=== PATIENT | female | born 1960 | race Caucasian/White ===

== ENCOUNTER 2018-04-06 14:01 | Inpatient (IN) | payer BC ==
[2018-04-06] MEDS ORDERED: PROPOFOL 20 ML (16:13)
[2018-04-06] MEDS ORDERED: CEFAZOLIN 1 GM INJ ×2 (16:13→19:23)
[2018-04-06] MEDS ORDERED: ROCURONIUM 50 MG INJ ×2 (16:13→17:00)
[2018-04-06] MEDS ORDERED: MIDAZOLAM 1 MG/ML 2 ML INJ (16:14)
[2018-04-06] MEDS ORDERED: ROPIVACAINE 0.5 % 30 ML VIAL (16:17)
[2018-04-06] MEDS ORDERED: ONDANSETRON 4 MG INJ IV (16:30)
[2018-04-06] MEDS ORDERED: FENTAnyl 50 MCG/ML VIAL IV ×3 (16:30)
[2018-04-06] MEDS ORDERED: DIPHENHYDRAMINE 50 MG INJ IV (16:30)
[2018-04-06] MEDS ORDERED: EPHEDrine SULFATE 50 MG/5 ML SYG IV (16:30)
[2018-04-06] MEDS ORDERED: OXYCODONE/ACETAMINOPHEN (5/325) TAB PO ×2 (16:30)
[2018-04-06] MEDS ORDERED: HYDROmorphONE 1 MG/5 ML IV SYRINGE IV (16:30)
[2018-04-06] MEDS ORDERED: LABETALOL HCL 20MG INJ IV (16:30)
[2018-04-06] MEDS ORDERED: METOCLOPRAMIDE 10 MG INJ IV (16:30)
[2018-04-06] MEDS ORDERED: hydrALAzine 20 MG INJ IV (16:30)
[2018-04-06] MEDS ORDERED: DEXAMETHASONE 4 MG/ML 1 ML INJ (17:00)
[2018-04-06] MEDS ORDERED: ONDANSETRON 4 MG INJ (17:00)
[2018-04-06] MEDS ORDERED: METOCLOPRAMIDE 10 MG INJ (17:00)
[2018-04-06] MEDS ORDERED: ACETAMINOPHEN 1000MG/100ML IV 100 ML (17:01)
[2018-04-06] MEDS ORDERED: EPHEDrine SULFATE 50 MG/5 ML SYG (18:48)
[2018-04-06] MEDS ORDERED: HYDROmorphONE 2 MG/ML SYG (19:16)
[2018-04-06] MEDS: SOD CHLORIDE 0.9% 1,000 ML IV (19:56)
[2018-04-06] MEDS: MEPERIDINE 25 MG INJ IV (20:12)
[2018-04-06] MEDS: ONDANSETRON 4 MG INJ IV (20:45)
[2018-04-06] MEDS: HYDROmorphONE 1 MG/5 ML IV SYRINGE IV ×2 (20:47→21:18)
[2018-04-06] MEDS: morphine 2 MG INJ IV (21:36)
[2018-04-06] MEDS: INSULIN GLARGINE [LANTus] (100 UNITS/ML) SYG SC (23:45)
[2018-04-07] MEDS: morphine 2 MG INJ IV ×9 (02:30→23:08)
[2018-04-07] MEDS: SOD CHLORIDE 0.9% 1,000 ML IV ×2 (02:30→12:27)
[2018-04-07] MEDS: ACCU-CHEK XX (02:40)
[2018-04-07 05:26] LABS: ADD MAN DIFF? NO
[2018-04-07 05:35] LABS: BASOPHILS % 0.1 % (0.0-2.0); HEMATOCRIT 29.2 % (37.0-47.0); HEMOGLOBIN 9.3 g/dl (12.0-16.0); LYMPHOCYTES # 0.8 10^3/ul (0.8-2.9); MEAN CORPUSCULAR HEMOGLOBIN 28.4 pg (29.0-33.0); MEAN CORPUSCULAR HGB CONC 31.8 g/dl (32.0-37.0); MEAN CORPUSCULAR VOLUME 89.3 fl (82.0-101.0); MEAN PLATELET VOLUME 12.2 fl (7.4-10.4); MONOCYTE # 0.6 10^3/ul (0.3-0.9); MONOCYTES % 6.7 % (0.0-11.0); NEUTROPHIL # 8.2 10^3/ul (1.6-7.5); NEUTROPHILS % 84.8 % (39.0-77.0); PLATELET COUNT 215 10^3/UL (140-415); RED BLOOD COUNT 3.27 10^6/ul (4.20-5.40); RED CELL DISTRIBUTION WIDTH 13.3 % (11.5-14.5)
[2018-04-07 05:35] LABS: WHITE BLOOD COUNT 9.6 10^3/ul (4.8-10.8)
[2018-04-07 06:04] LABS: ALANINE AMINOTRANSFERASE 96 IU/L (13-69); ALBUMIN 3.8 g/dl (3.3-4.9); ALBUMIN/GLOBULIN RATIO 1.58; ALKALINE PHOSPHATASE 56 IU/L (42-121); ANION GAP 13 (8-16); ASPARTATE AMINO TRANSFERASE 112 IU/L (15-46); BILIRUBIN,INDIRECT 0.2 mg/dl (0-1.1); BILIRUBIN,TOTAL 0.2 mg/dl (0.2-1.3); BLOOD UREA NITROGEN 43 mg/dl (7-20); CALCIUM 8.5 mg/dl (8.4-10.2); CARBON DIOXIDE 23 mmol/L (21-31); CHLORIDE 110 mmol/L (97-110); CREATININE 1.85 mg/dl (0.44-1.00); GLUCOSE 232 mg/dl (70-220); POTASSIUM 4.8 mmol/L (3.5-5.1); SODIUM 141 mmol/L (135-144); TOTAL PROTEIN 6.2 g/dl (6.1-8.1)
[2018-04-07] MEDS: FUROSEMIDE 20 MG TAB PO (06:35)
[2018-04-07] MEDS: LEVOTHYROXINE 112 MCG TAB PO (06:35)
[2018-04-07] MEDS: HEPARIN 5,000 UNIT/0.5 ML VIAL SC ×2 (06:38→18:51)
[2018-04-07] MEDS: INSULIN ASPART [NOVOLOG] 3 ML PEN SC ×7 (08:34→20:46)
[2018-04-07] MEDS: LISINOPRIL 20 MG TAB PO (08:37)
[2018-04-07] MEDS: CEFAZOLIN 1 GM/50 ML (PMX) 50 ML IVPB (08:37)
[2018-04-07] MEDS: CLOPIDOGREL 75 MG TAB PO (08:37)
[2018-04-07] MEDS: ZINC SULFATE 220 MG CAP PO (08:37)
[2018-04-07] MEDS: FENOFIBRATE 145 MG TAB PO (08:38)
[2018-04-07] MEDS: NEBIVOLOL 5 MG TAB PO (08:38)
[2018-04-07] MEDS: AMLODIPINE 10 MG TAB PO (08:39)
[2018-04-07] MEDS: GABAPENTIN 100 MG CAP PO ×3 (08:39→20:38)
[2018-04-07] MEDS: LIDOCAINE 5% PATCH TD (08:41)
[2018-04-07] MEDS: VITAMIN B COMPLEX/VIT C CAP PO (08:57)
[2018-04-07 09:02] LABS: MAGNESIUM 1.8 mg/dl (1.7-2.5)
[2018-04-07 09:02] LABS: PHOSPHORUS 4.6 mg/dl (2.5-4.9)
[2018-04-07] MEDS ORDERED: DIPHENHYDRAMINE 25 MG CAP (12:43)
[2018-04-07] MEDS ORDERED: INSULIN GLARGINE [LANTus] (100 UNITS/ML) SYG SC (20:00)
[2018-04-07] MEDS: ATORVASTATIN 40 MG TAB PO (20:38)
[2018-04-07] MEDS: INSULIN GLARGINE [LANTus] (100 UNITS/ML) SYG SC (20:46)
[2018-04-07] MEDS: LIRAGLUTIDE SC (21:00)
[2018-04-07] MEDS: ZOLPIDEM 5 MG TAB PO (23:37)
[2018-04-08] MEDS: SOD CHLORIDE 0.9% 1,000 ML IV ×3 (01:45→23:18)
[2018-04-08] MEDS: ACCU-CHEK XX (02:00)
[2018-04-08] MEDS: LEVOTHYROXINE 112 MCG TAB PO (06:18)
[2018-04-08] MEDS: FUROSEMIDE 20 MG TAB PO (06:19)
[2018-04-08] MEDS: HEPARIN 5,000 UNIT/0.5 ML VIAL SC ×2 (06:24→19:38)
[2018-04-08 07:05] LABS: ADD MAN DIFF? NO
[2018-04-08 07:11] LABS: BASOPHILS % 0.3 % (0.0-2.0); EOSINOPHILS # 0.1 10^3/ul (0.0-0.5); EOSINOPHILS % 1.9 % (0.0-7.0); HEMATOCRIT 24.7 % (37.0-47.0); LYMPHOCYTES # 1.6 10^3/ul (0.8-2.9); LYMPHOCYTES % 23.4 % (15.0-51.0); MEAN CORPUSCULAR HEMOGLOBIN 28.5 pg (29.0-33.0); MEAN CORPUSCULAR HGB CONC 32.4 g/dl (32.0-37.0); MEAN CORPUSCULAR VOLUME 87.9 fl (82.0-101.0); MEAN PLATELET VOLUME 12.6 fl (7.4-10.4); MONOCYTE # 0.8 10^3/ul (0.3-0.9); MONOCYTES % 10.9 % (0.0-11.0); NEUTROPHIL # 4.4 10^3/ul (1.6-7.5); NEUTROPHILS % 63.2 % (39.0-77.0); PLATELET COUNT 178 10^3/UL (140-415); RED BLOOD COUNT 2.81 10^6/ul (4.20-5.40); RED CELL DISTRIBUTION WIDTH 13.2 % (11.5-14.5)
[2018-04-08 07:58] LABS: ANION GAP 11 (8-16); BLOOD UREA NITROGEN 31 mg/dl (7-20); CALCIUM 8.6 mg/dl (8.4-10.2); CARBON DIOXIDE 24 mmol/L (21-31); CHLORIDE 106 mmol/L (97-110); CREATININE 1.65 mg/dl (0.44-1.00); GLUCOSE 164 mg/dl (70-220); POTASSIUM 3.8 mmol/L (3.5-5.1); SODIUM 137 mmol/L (135-144)
[2018-04-08] MEDS: VITAMIN B COMPLEX/VIT C CAP PO (08:34)
[2018-04-08] MEDS: GABAPENTIN 100 MG CAP PO ×3 (08:35→20:19)
[2018-04-08] MEDS: CLOPIDOGREL 75 MG TAB PO (08:35)
[2018-04-08] MEDS: LISINOPRIL 20 MG TAB PO (08:35)
[2018-04-08] MEDS: ZINC SULFATE 220 MG CAP PO (08:35)
[2018-04-08] MEDS: AMLODIPINE 10 MG TAB PO (08:35)
[2018-04-08] MEDS: NEBIVOLOL 5 MG TAB PO (08:36)
[2018-04-08] MEDS: FENOFIBRATE 145 MG TAB PO (08:44)
[2018-04-08] MEDS: INSULIN ASPART [NOVOLOG] 3 ML PEN SC ×7 (08:45→20:21)
[2018-04-08] MEDS: LIRAGLUTIDE SC (08:46)
[2018-04-08] MEDS: LIDOCAINE 5% PATCH TD (08:55)
[2018-04-08] MEDS: morphine 4 MG/ML VIAL IV (12:05)
[2018-04-08] MEDS ORDERED: ACETAMINOPHEN 325 MG TAB PO (15:30)
[2018-04-08 19:05] LABS: ADD UMIC NO; UR ASCORBIC ACID NEGATIVE (NEGATIVE); UR BILIRUBIN (Dip) NEGATIVE (NEGATIVE); UR BLOOD (Dip) NEGATIVE (NEGATIVE); UR CLARITY CLEAR (CLEAR); UR COLOR YELLOW (YELLOW); UR GLUCOSE (Dip) 1+ mg/dL (NEGATIVE); UR KETONES (Dip) NEGATIVE (NEGATIVE); UR LEUKOCYTE ESTERASE (Dip) NEGATIVE Leu/ul (NEGATIVE); UR NITRITE (Dip) NEGATIVE (NEGATIVE); UR TOTAL PROTEIN (Dip) NEGATIVE (NEGATIVE); UR UROBILINOGEN (Dip) NEGATIVE (NEGATIVE)
[2018-04-08] MEDS: ATORVASTATIN 40 MG TAB PO (20:19)
[2018-04-08] MEDS: INSULIN GLARGINE [LANTus] (100 UNITS/ML) SYG SC (20:21)
[2018-04-09] MEDS: morphine 4 MG/ML VIAL IV (00:16)
[2018-04-09] MEDS: ACCU-CHEK XX (02:00)
[2018-04-09] MEDS: SOD CHLORIDE 0.9% 1,000 ML IV ×3 (03:48→23:33)
[2018-04-09 05:11] LABS: ADD MAN DIFF? NO
[2018-04-09 05:19] LABS: WHITE BLOOD COUNT 6.4 10^3/ul (4.8-10.8)
[2018-04-09 05:19] LABS: BASOPHILS % 0.3 % (0.0-2.0); EOSINOPHILS # 0.2 10^3/ul (0.0-0.5); EOSINOPHILS % 2.8 % (0.0-7.0); HEMATOCRIT 24.8 % (37.0-47.0); LYMPHOCYTES # 1.7 10^3/ul (0.8-2.9); LYMPHOCYTES % 26.8 % (15.0-51.0); MEAN CORPUSCULAR HEMOGLOBIN 28.4 pg (29.0-33.0); MEAN CORPUSCULAR HGB CONC 32.3 g/dl (32.0-37.0); MEAN CORPUSCULAR VOLUME 87.9 fl (82.0-101.0); MONOCYTE # 0.6 10^3/ul (0.3-0.9); MONOCYTES % 9.7 % (0.0-11.0); NEUTROPHIL # 3.9 10^3/ul (1.6-7.5); NEUTROPHILS % 60.1 % (39.0-77.0); PLATELET COUNT 180 10^3/UL (140-415); RED BLOOD COUNT 2.82 10^6/ul (4.20-5.40); RED CELL DISTRIBUTION WIDTH 12.8 % (11.5-14.5)
[2018-04-09] MEDS: FUROSEMIDE 20 MG TAB PO (05:37)
[2018-04-09] MEDS: LEVOTHYROXINE 112 MCG TAB PO (05:37)
[2018-04-09 05:39] LABS: ANION GAP 9 (8-16); BLOOD UREA NITROGEN 29 mg/dl (7-20); CARBON DIOXIDE 27 mmol/L (21-31); CHLORIDE 108 mmol/L (97-110); CREATININE 1.53 mg/dl (0.44-1.00); GLUCOSE 139 mg/dl (70-220); POTASSIUM 3.8 mmol/L (3.5-5.1); SODIUM 140 mmol/L (135-144)
[2018-04-09] MEDS: HEPARIN 5,000 UNIT/0.5 ML VIAL SC ×2 (05:39→19:22)
[2018-04-09] MEDS: LISINOPRIL 20 MG TAB PO (08:35)
[2018-04-09] MEDS: CLOPIDOGREL 75 MG TAB PO (08:35)
[2018-04-09] MEDS: ZINC SULFATE 220 MG CAP PO (08:35)
[2018-04-09] MEDS: GABAPENTIN 100 MG CAP PO ×3 (08:35→20:21)
[2018-04-09] MEDS: VITAMIN B COMPLEX/VIT C CAP PO (08:35)
[2018-04-09] MEDS: FENOFIBRATE 145 MG TAB PO (08:35)
[2018-04-09] MEDS: AMLODIPINE 10 MG TAB PO (08:36)
[2018-04-09] MEDS: NEBIVOLOL 5 MG TAB PO (08:36)
[2018-04-09] MEDS: INSULIN ASPART [NOVOLOG] 3 ML PEN SC ×7 (08:38→20:25)
[2018-04-09] MEDS: LIDOCAINE 5% PATCH TD ×2 (09:00→10:46)
[2018-04-09] MEDS: LIRAGLUTIDE SC ×2 (09:00→10:47)
[2018-04-09] MEDS ORDERED: VANCOMYCIN IV PER PHARMACY XX (17:30)
[2018-04-09] MEDS: ATORVASTATIN 40 MG TAB PO (20:21)
[2018-04-09] MEDS: INSULIN GLARGINE [LANTus] (100 UNITS/ML) SYG SC (20:26)
[2018-04-10] MEDS: VANCOMYCIN 2 GM in SOD CHLORIDE 0.9% 500 ML IVPB (01:26)
[2018-04-10] MEDS: ACCU-CHEK XX (01:43)
[2018-04-10] MEDS: morphine 4 MG/ML VIAL IV (03:29)
[2018-04-10] MEDS: DIPHENHYDRAMINE 25 MG CAP PO (03:32)
[2018-04-10] MEDS: LEVOTHYROXINE 112 MCG TAB PO (06:26)
[2018-04-10] MEDS: FUROSEMIDE 20 MG TAB PO (06:29)
[2018-04-10] MEDS: HEPARIN 5,000 UNIT/0.5 ML VIAL SC ×2 (06:32→20:28)
[2018-04-10] MEDS: INSULIN ASPART [NOVOLOG] 3 ML PEN SC ×7 (07:50→20:30)
[2018-04-10] MEDS: CLOPIDOGREL 75 MG TAB PO (08:32)
[2018-04-10] MEDS: VITAMIN B COMPLEX/VIT C CAP PO (08:32)
[2018-04-10] MEDS: AMLODIPINE 10 MG TAB PO (08:33)
[2018-04-10] MEDS: LISINOPRIL 20 MG TAB PO (08:34)
[2018-04-10] MEDS: FENOFIBRATE 145 MG TAB PO (08:34)
[2018-04-10] MEDS: ZINC SULFATE 220 MG CAP PO (08:35)
[2018-04-10] MEDS: GABAPENTIN 100 MG CAP PO ×3 (08:36→20:26)
[2018-04-10] MEDS: LIDOCAINE 5% PATCH TD (08:40)
[2018-04-10] MEDS ORDERED: HYDROCODONE/APAP (5/325) TAB NGT (09:00)
[2018-04-10] MEDS: LIRAGLUTIDE SC (09:56)
[2018-04-10] MEDS: NEBIVOLOL 5 MG TAB PO (09:56)
[2018-04-10] MEDS: CIPROFLOXACIN 250 MG TAB PO (18:05)
[2018-04-10] MEDS: ATORVASTATIN 40 MG TAB PO (20:27)
[2018-04-10] MEDS: INSULIN GLARGINE [LANTus] (100 UNITS/ML) SYG SC (20:29)
[2018-04-10] MEDS ORDERED: VANCOMYCIN 1.5 GM in SOD CHLORIDE 0.9% 250 ML IVPB (23:00)
[2018-04-11] MEDS: ACCU-CHEK XX (01:38)
[2018-04-11] MEDS: CIPROFLOXACIN 250 MG TAB PO ×2 (06:44→17:51)
[2018-04-11] MEDS: FUROSEMIDE 20 MG TAB PO (06:44)
[2018-04-11] MEDS: LEVOTHYROXINE 112 MCG TAB PO (06:44)
[2018-04-11] MEDS: HEPARIN 5,000 UNIT/0.5 ML VIAL SC ×2 (06:46→18:45)
[2018-04-11] MEDS: NEBIVOLOL 5 MG TAB PO (08:56)
[2018-04-11] MEDS: FENOFIBRATE 145 MG TAB PO (08:57)
[2018-04-11] MEDS: GABAPENTIN 100 MG CAP PO ×3 (08:57→20:31)
[2018-04-11] MEDS: VITAMIN B COMPLEX/VIT C CAP PO (08:57)
[2018-04-11] MEDS: LISINOPRIL 20 MG TAB PO (08:58)
[2018-04-11] MEDS: CLOPIDOGREL 75 MG TAB PO (08:58)
[2018-04-11] MEDS: AMLODIPINE 10 MG TAB PO (08:59)
[2018-04-11] MEDS: ZINC SULFATE 220 MG CAP PO (08:59)
[2018-04-11] MEDS: LIRAGLUTIDE SC (09:00)
[2018-04-11] MEDS: INSULIN ASPART [NOVOLOG] 3 ML PEN SC ×7 (09:01→20:38)
[2018-04-11] MEDS: LIDOCAINE 5% PATCH TD (09:03)
[2018-04-11] MEDS ORDERED: INSULIN ASPART [NOVOLOG] 3 ML PEN SC (11:40)
[2018-04-11] MEDS: ATORVASTATIN 40 MG TAB PO (20:31)
[2018-04-11] MEDS: INSULIN GLARGINE [LANTus] (100 UNITS/ML) SYG SC (20:37)
[2018-04-12] MEDS: ACCU-CHEK XX (02:00)
[2018-04-12] MEDS: CIPROFLOXACIN 250 MG TAB PO ×2 (06:14→18:02)
[2018-04-12] MEDS: LEVOTHYROXINE 112 MCG TAB PO (06:14)
[2018-04-12] MEDS: FUROSEMIDE 20 MG TAB PO (06:15)
[2018-04-12] MEDS: HEPARIN 5,000 UNIT/0.5 ML VIAL SC ×2 (06:18→20:18)
[2018-04-12] MEDS: CLOPIDOGREL 75 MG TAB PO (08:46)
[2018-04-12] MEDS: VITAMIN B COMPLEX/VIT C CAP PO (08:46)
[2018-04-12] MEDS: ZINC SULFATE 220 MG CAP PO (08:46)
[2018-04-12] MEDS: FENOFIBRATE 145 MG TAB PO (08:46)
[2018-04-12] MEDS: GABAPENTIN 100 MG CAP PO ×3 (08:46→20:09)
[2018-04-12] MEDS: NEBIVOLOL 5 MG TAB PO (08:49)
[2018-04-12] MEDS: LISINOPRIL 20 MG TAB PO (08:50)
[2018-04-12] MEDS: AMLODIPINE 10 MG TAB PO (08:50)
[2018-04-12] MEDS: LIRAGLUTIDE SC (08:59)
[2018-04-12] MEDS: INSULIN ASPART [NOVOLOG] 3 ML PEN SC ×7 (09:04→21:00)
[2018-04-12] MEDS: LIDOCAINE 5% PATCH TD (12:48)
[2018-04-12] MEDS: INSULIN GLARGINE [LANTus] (100 UNITS/ML) SYG SC ×2 (20:00→22:29)
[2018-04-12] MEDS: ATORVASTATIN 40 MG TAB PO (20:09)
[2018-04-13] MEDS: ACCU-CHEK XX (02:00)
[2018-04-13] MEDS: CIPROFLOXACIN 250 MG TAB PO (06:07)
[2018-04-13] MEDS: FUROSEMIDE 20 MG TAB PO (06:07)
[2018-04-13] MEDS: LEVOTHYROXINE 112 MCG TAB PO (06:07)
[2018-04-13] MEDS: HEPARIN 5,000 UNIT/0.5 ML VIAL SC (06:11)
[2018-04-13] MEDS: INSULIN ASPART [NOVOLOG] 3 ML PEN SC ×4 (07:50→13:09)
[2018-04-13] MEDS: LIRAGLUTIDE SC (09:05)
[2018-04-13] MEDS: CLOPIDOGREL 75 MG TAB PO (09:08)
[2018-04-13] MEDS: GABAPENTIN 100 MG CAP PO ×2 (09:08→13:19)
[2018-04-13] MEDS: FENOFIBRATE 145 MG TAB PO (09:08)
[2018-04-13] MEDS: ZINC SULFATE 220 MG CAP PO (09:09)
[2018-04-13] MEDS: LISINOPRIL 20 MG TAB PO (09:10)
[2018-04-13] MEDS: AMLODIPINE 10 MG TAB PO (09:10)
[2018-04-13] MEDS: NEBIVOLOL 5 MG TAB PO (09:13)
[2018-04-13] MEDS: VITAMIN B COMPLEX/VIT C CAP PO (09:20)
[2018-04-13] MEDS: LIDOCAINE 5% PATCH TD (09:34)
== END 2018-04-13 13:56 | disposition home health service (06) | DRG 41 ==
LOC: SDS 14:01 → REC 20:05 → MS1 21:30
PROVIDERS: Podiatrist Foot & Ankle Surgery
PROC: 0SGF05Z Fusion of Right Ankle Joint with External Fixation Device, Open Approach (ICD-10-PCS; principal; 2018-04-06 16:00)
PROC: 0JXQ0ZC Transfer Right Foot Subcutaneous Tissue and Fascia with Skin, Subcutaneous Tissue and Fascia, Open Approach (ICD-10-PCS; 2018-04-06 16:00)
PROC: 0JBQ0ZZ Excision of Right Foot Subcutaneous Tissue and Fascia, Open Approach (ICD-10-PCS; 2018-04-06 16:00)
PROC: 0QBJ0ZZ Excision of Right Fibula, Open Approach (ICD-10-PCS; 2018-04-06 16:00)
PROC: 0SU Lower Joints, Supplement (ICD-10-PCS; 2018-04-06 16:00)
DX: E11.610 Type 2 diabetes mellitus with diabetic neuropathic arthropathy (principal); N39.0 Urinary tract infection, site not specified; L97.319 Non-pressure chronic ulcer of right ankle with unspecified severity; M84.671 Pathological fracture in other disease, right ankle; E11.622 Type 2 diabetes mellitus with other skin ulcer; E11.42 Type 2 diabetes mellitus with diabetic polyneuropathy; E11.22 Type 2 diabetes mellitus with diabetic chronic kidney disease; E11.65 Type 2 diabetes mellitus with hyperglycemia; E78.5 Hyperlipidemia, unspecified; E66.9 Obesity, unspecified; E03.9 Hypothyroidism, unspecified; I10 Essential (primary) hypertension; M21.171 Varus deformity, not elsewhere classified, right ankle; M25.371 Other instability, right ankle; N18.3 Chronic kidney disease, stage 3 (moderate); B95.2 Enterococcus as the cause of diseases classified elsewhere; Z68.35 Body mass index [BMI] 35.0-35.9, adult; Z86.73 Personal history of transient ischemic attack (TIA), and cerebral infarction without residual deficits; Z79.02 Long term (current) use of antithrombotics/antiplatelets; Z79.4 Long term (current) use of insulin
CPT/HCPCS: 73600; 73610-RT; 73630; 80048; 80053; 81003; 82962; 83735; 84100; 85025; 87070; 87075; 87086; 87102; 87116; 97110; 97116; 97161; 97530; 97542

== ENCOUNTER 2018-04-20 09:30 | Inpatient (IN) | payer BC ==
[2018-04-20] MEDS: SODIUM CHLORIDE 0.9% 1L BAG IV* (10:16)
[2018-04-20 10:49] LABS: ADD MAN DIFF? NO
[2018-04-20 11:06] LABS: BASOPHIL # 0.1 10^3/ul (0.0-0.1); BASOPHILS % 0.6 % (0.0-2.0); EOSINOPHILS # 0.4 10^3/ul (0.0-0.5); EOSINOPHILS % 4.9 % (0.0-7.0); HEMOGLOBIN 10.1 g/dl (12.0-16.0); LYMPHOCYTES # 1.8 10^3/ul (0.8-2.9); LYMPHOCYTES % 22.4 % (15.0-51.0); MEAN CORPUSCULAR HEMOGLOBIN 28.2 pg (29.0-33.0); MEAN CORPUSCULAR HGB CONC 31.6 g/dl (32.0-37.0); MEAN CORPUSCULAR VOLUME 89.4 fl (82.0-101.0); MEAN PLATELET VOLUME 11.2 fl (7.4-10.4); MONOCYTE # 0.5 10^3/ul (0.3-0.9); MONOCYTES % 6.7 % (0.0-11.0); NEUTROPHIL # 5.2 10^3/ul (1.6-7.5); NEUTROPHILS % 64.7 % (39.0-77.0); PLATELET COUNT 433 10^3/UL (140-415); RED BLOOD COUNT 3.58 10^6/ul (4.20-5.40); RED CELL DISTRIBUTION WIDTH 13.2 % (11.5-14.5)
[2018-04-20 11:11] LABS: INR 0.93; PROTIME 12.6 Sec (11.9-14.9)
[2018-04-20 11:12] LABS: ALANINE AMINOTRANSFERASE 27 IU/L (13-69); ALBUMIN 4.5 g/dl (3.3-4.9); ALKALINE PHOSPHATASE 69 IU/L (42-121); ANION GAP 13 (8-16); ASPARTATE AMINO TRANSFERASE 32 IU/L (15-46); BILIRUBIN,INDIRECT 0.3 mg/dl (0-1.1); BILIRUBIN,TOTAL 0.3 mg/dl (0.2-1.3); BLOOD UREA NITROGEN 50 mg/dl (7-20); CALCIUM 10.1 mg/dl (8.4-10.2); CARBON DIOXIDE 25 mmol/L (21-31); CHLORIDE 109 mmol/L (97-110); CREATININE 1.97 mg/dl (0.44-1.00); GLUCOSE 134 mg/dl (70-220); PARTIAL THROMBOPLASTIN TIME 33.3 Sec (23.0-35.0); POTASSIUM 4.4 mmol/L (3.5-5.1); SODIUM 143 mmol/L (135-144); TOTAL PROTEIN 7.7 g/dl (6.1-8.1)
[2018-04-20] MEDS: PIPER-TAZO 3.375 GM IV (PMX) 100 ML IVPB (12:50)
[2018-04-20] MEDS ORDERED: ONDANSETRON 4 MG INJ IV ×2 (13:00→18:00)
[2018-04-20] MEDS ORDERED: ACETAMINOPHEN 325 MG TAB PO ×2 (13:00→18:00)
[2018-04-20] MEDS: CLINDAMYCIN 900 MG/D5W (PMX) 50 ML IVPB ×2 (13:28→23:57)
[2018-04-20] MEDS: VANCOMYCIN 1 GM (PMX) 250 ML IVPB (15:05)
[2018-04-20] MEDS ORDERED: PIPER-TAZO 3.375 GM IV (PMX) 100 ML IVPB (18:00)
[2018-04-20] MEDS ORDERED: NACL 0.9% 3 ML SYG IV (18:00)
[2018-04-20] MEDS ORDERED: DOCUSATE SODIUM 100 MG CAP PO (18:00)
[2018-04-20] MEDS ORDERED: VANCOMYCIN IV PER PHARMACY XX (18:00)
[2018-04-20] MEDS ORDERED: HYDROCODONE/APAP (5/325) TAB PO (18:00)
[2018-04-20] MEDS ORDERED: BISACODYL (EC) 5 MG TAB PO (18:00)
[2018-04-20] MEDS ORDERED: HYDROmorphONE 0.5 MG/0.5 ML SYG IV (18:00)
[2018-04-20] MEDS: INSULIN ASPART [NOVOLOG] 3 ML PEN SC ×3 (18:00→21:00)
[2018-04-20] MEDS: SOD CHLORIDE 0.9% 1,000 ML IV (19:00)
[2018-04-20] MEDS ORDERED: GLUCOSE GEL 15 GRAM TUBE BUCCAL (19:30)
[2018-04-20] MEDS ORDERED: GLUCAGON 1 MG INJ IM (19:30)
[2018-04-20] MEDS ORDERED: DEXTROSE 50% 50 ML SYRINGE IV ×2 (19:30)
[2018-04-20] MEDS ORDERED: GLUCOSE GEL 15 GRAM TUBE PO (19:30)
[2018-04-20] MEDS: PIPER-TAZO 2.25 GM (PMX) 50 ML IVPB (20:25)
[2018-04-20] MEDS: GABAPENTIN 100 MG CAP PO (20:26)
[2018-04-20] MEDS: ATORVASTATIN 40 MG TAB PO (20:26)
[2018-04-20] MEDS: VANCOMYCIN 1 GM 250 ML IVPB (21:13)
[2018-04-20] MEDS ORDERED: CLINDAMYCIN 900 MG INJ IV (22:00)
[2018-04-20] MEDS: INSULIN GLARGINE [LANTus] (100 UNITS/ML) SYG SC (22:27)
[2018-04-21] MEDS: ZOLPIDEM 5 MG TAB PO (00:07)
[2018-04-21] MEDS: PIPER-TAZO 2.25 GM (PMX) 50 ML IVPB ×4 (00:39→17:53)
[2018-04-21] MEDS: ACCU-CHEK XX ×2 (01:18→21:31)
[2018-04-21] MEDS: CLINDAMYCIN 900 MG/D5W (PMX) 50 ML IVPB ×3 (05:33→22:09)
[2018-04-21 06:37] LABS: ADD MAN DIFF? NO
[2018-04-21 06:43] LABS: WHITE BLOOD COUNT 5.1 10^3/ul (4.8-10.8)
[2018-04-21 06:43] LABS: BASOPHILS % 0.6 % (0.0-2.0); EOSINOPHILS # 0.3 10^3/ul (0.0-0.5); EOSINOPHILS % 6.1 % (0.0-7.0); HEMOGLOBIN 8.5 g/dl (12.0-16.0); LYMPHOCYTES # 1.1 10^3/ul (0.8-2.9); LYMPHOCYTES % 21.3 % (15.0-51.0); MEAN CORPUSCULAR HEMOGLOBIN 28.1 pg (29.0-33.0); MEAN CORPUSCULAR HGB CONC 31.5 g/dl (32.0-37.0); MEAN CORPUSCULAR VOLUME 89.1 fl (82.0-101.0); MEAN PLATELET VOLUME 11.2 fl (7.4-10.4); MONOCYTE # 0.5 10^3/ul (0.3-0.9); MONOCYTES % 9.6 % (0.0-11.0); NEUTROPHIL # 3.2 10^3/ul (1.6-7.5); PLATELET COUNT 354 10^3/UL (140-415); RED BLOOD COUNT 3.03 10^6/ul (4.20-5.40); RED CELL DISTRIBUTION WIDTH 13.2 % (11.5-14.5)
[2018-04-21 06:55] LABS: HEMOGLOBIN A1C 6.7 % (0-5.9)
[2018-04-21 07:22] LABS: ALANINE AMINOTRANSFERASE 34 IU/L (13-69); ALBUMIN 3.1 g/dl (3.3-4.9); ALBUMIN/GLOBULIN RATIO 1.06; ALKALINE PHOSPHATASE 46 IU/L (42-121); ANION GAP 11 (8-16); ASPARTATE AMINO TRANSFERASE 31 IU/L (15-46); BILIRUBIN,INDIRECT 0.4 mg/dl (0-1.1); BILIRUBIN,TOTAL 0.4 mg/dl (0.2-1.3); BLOOD UREA NITROGEN 35 mg/dl (7-20); CALCIUM 9.3 mg/dl (8.4-10.2); CARBON DIOXIDE 26 mmol/L (21-31); CHLORIDE 111 mmol/L (97-110); CREATININE 1.94 mg/dl (0.44-1.00); GLUCOSE 80 mg/dl (70-220); SODIUM 144 mmol/L (135-144)
[2018-04-21] MEDS: INSULIN ASPART [NOVOLOG] 3 ML PEN SC ×7 (08:00→21:00)
[2018-04-21] MEDS: LEVOTHYROXINE 112 MCG TAB PO (08:37)
[2018-04-21] MEDS: VITAMIN B COMPLEX/VIT C CAP PO (08:37)
[2018-04-21] MEDS: FUROSEMIDE 20 MG TAB PO (08:37)
[2018-04-21] MEDS: CLOPIDOGREL 75 MG TAB PO (08:38)
[2018-04-21] MEDS: GABAPENTIN 100 MG CAP PO ×3 (08:38→21:08)
[2018-04-21] MEDS: LISINOPRIL 20 MG TAB PO ×2 (08:38→21:09)
[2018-04-21] MEDS: AMLODIPINE 10 MG TAB PO (08:38)
[2018-04-21] MEDS: FENOFIBRATE 145 MG TAB PO (08:42)
[2018-04-21] MEDS: SOD CHLORIDE 0.9% 1,000 ML IV (13:51)
[2018-04-21] MEDS: SODIUM HYPOCHLORITE (1/40) 1 APPLIC BTL IRR (13:57)
[2018-04-21] MEDS: VANCOMYCIN 1 GM 250 ML IVPB (14:59)
[2018-04-21] MEDS: ATORVASTATIN 40 MG TAB PO (21:08)
[2018-04-21] MEDS: INSULIN GLARGINE [LANTus] (100 UNITS/ML) SYG SC (21:16)
[2018-04-22] MEDS: PIPER-TAZO 2.25 GM (PMX) 50 ML IVPB ×5 (00:43→23:08)
[2018-04-22] MEDS: LOPERAMIDE 2 MG CAP PO ×2 (00:45→21:51)
[2018-04-22] MEDS: HYDROCODONE/APAP (5/325) TAB PO (00:45)
[2018-04-22] MEDS: SOD CHLORIDE 0.9% 1,000 ML IV ×2 (03:56→09:51)
[2018-04-22] MEDS: CLINDAMYCIN 900 MG/D5W (PMX) 50 ML IVPB ×3 (06:52→21:49)
[2018-04-22] MEDS: LEVOTHYROXINE 112 MCG TAB PO (07:55)
[2018-04-22] MEDS: INSULIN ASPART [NOVOLOG] 3 ML PEN SC ×7 (08:00→21:00)
[2018-04-22] MEDS: VITAMIN B COMPLEX/VIT C CAP PO (08:34)
[2018-04-22] MEDS: FENOFIBRATE 145 MG TAB PO (08:34)
[2018-04-22] MEDS: CLOPIDOGREL 75 MG TAB PO (08:34)
[2018-04-22] MEDS: GABAPENTIN 100 MG CAP PO ×3 (08:34→21:50)
[2018-04-22] MEDS: LISINOPRIL 20 MG TAB PO ×2 (08:35→21:50)
[2018-04-22] MEDS: AMLODIPINE 5 MG TAB PO ×2 (08:35→21:50)
[2018-04-22] MEDS: FUROSEMIDE 20 MG TAB PO (08:36)
[2018-04-22] MEDS: SODIUM HYPOCHLORITE (1/40) 1 APPLIC BTL IRR (09:00)
[2018-04-22] MEDS: VANCOMYCIN 1 GM 250 ML IVPB (15:26)
[2018-04-22] MEDS: INSULIN GLARGINE [LANTus] (100 UNITS/ML) SYG SC ×2 (20:00→23:18)
[2018-04-22] MEDS: ATORVASTATIN 40 MG TAB PO (21:50)
[2018-04-23] MEDS: ACCU-CHEK XX (01:10)
[2018-04-23] MEDS: SOD CHLORIDE 0.9% 1,000 ML IV (05:09)
[2018-04-23] MEDS: PIPER-TAZO 2.25 GM (PMX) 50 ML IVPB ×3 (05:09→18:26)
[2018-04-23] MEDS: CLINDAMYCIN 900 MG/D5W (PMX) 50 ML IVPB (05:52)
[2018-04-23] MEDS: LEVOTHYROXINE 112 MCG TAB PO (06:00)
[2018-04-23] MEDS: INSULIN ASPART [NOVOLOG] 3 ML PEN SC ×7 (08:00→21:00)
[2018-04-23] MEDS: LOPERAMIDE 2 MG CAP PO (08:29)
[2018-04-23] MEDS: GABAPENTIN 100 MG CAP PO ×3 (09:00→21:32)
[2018-04-23] MEDS: FUROSEMIDE 20 MG TAB PO (09:00)
[2018-04-23] MEDS: CLOPIDOGREL 75 MG TAB PO (09:00)
[2018-04-23] MEDS: LISINOPRIL 20 MG TAB PO ×2 (09:00→21:34)
[2018-04-23] MEDS: AMLODIPINE 5 MG TAB PO ×2 (09:00→21:33)
[2018-04-23] MEDS: FENOFIBRATE 145 MG TAB PO (09:00)
[2018-04-23] MEDS: VITAMIN B COMPLEX/VIT C CAP PO (09:00)
[2018-04-23] MEDS: SODIUM HYPOCHLORITE (1/40) 1 APPLIC BTL IRR (09:00)
[2018-04-23 12:30] LABS: VANCOMYCIN,TROUGH 12.8 ug/ml (10.0-20.0)
[2018-04-23] MEDS: VANCOMYCIN 1 GM 250 ML IVPB (16:39)
[2018-04-23] MEDS: ATORVASTATIN 40 MG TAB PO (21:32)
[2018-04-23] MEDS: GLUCOSE GEL 15 GRAM TUBE PO (21:42)
[2018-04-23] MEDS: INSULIN GLARGINE [LANTus] (100 UNITS/ML) SYG SC (22:34)
[2018-04-24] MEDS: PIPER-TAZO 2.25 GM (PMX) 50 ML IVPB ×4 (00:51→17:48)
[2018-04-24] MEDS: ACCU-CHEK XX (02:00)
[2018-04-24] MEDS: LOPERAMIDE 2 MG CAP PO (02:31)
[2018-04-24] MEDS: SOD CHLORIDE 0.9% 1,000 ML IV ×3 (02:31→22:12)
[2018-04-24] MEDS: LEVOTHYROXINE 112 MCG TAB PO (05:22)
[2018-04-24] MEDS ORDERED: MIDAZOLAM 1 MG/ML 2 ML INJ (06:31)
[2018-04-24] MEDS ORDERED: PROPOFOL 20 ML (06:31)
[2018-04-24] MEDS ORDERED: NEOSTIGMINE 3 MG/3 ML SYRINGE (06:31)
[2018-04-24] MEDS ORDERED: FENTAnyl 50 MCG/ML VIAL (06:31)
[2018-04-24] MEDS ORDERED: LIDOCAINE 2% (SDV) 5 ML INJ (06:31)
[2018-04-24] MEDS ORDERED: GLYCOPYRROLATE 0.4 MG INJ (06:31)
[2018-04-24] MEDS ORDERED: ROCURONIUM 50 MG INJ (06:31)
[2018-04-24] MEDS ORDERED: DEXAMETHASONE 4 MG/ML 1 ML INJ (06:31)
[2018-04-24] MEDS ORDERED: ONDANSETRON 4 MG INJ (06:32)
[2018-04-24] MEDS ORDERED: SUCCINYLCHOLINE CHLORIDE 100 MG/5 ML SYG IV (06:32)
[2018-04-24] MEDS ORDERED: morphine (1 MG/ML) 10ML SYRINGE IV ×3 (07:30)
[2018-04-24] MEDS ORDERED: hydrALAzine 20 MG INJ IV (07:30)
[2018-04-24] MEDS ORDERED: MEPERIDINE 25 MG INJ IV (07:30)
[2018-04-24] MEDS ORDERED: LABETALOL HCL 20MG INJ IV (07:30)
[2018-04-24] MEDS ORDERED: DIPHENHYDRAMINE 50 MG INJ IV (07:30)
[2018-04-24] MEDS ORDERED: OXYCODONE/ACETAMINOPHEN (5/325) TAB PO ×2 (07:30)
[2018-04-24] MEDS ORDERED: FENTAnyl 50 MCG/ML VIAL IV ×2 (07:30)
[2018-04-24] MEDS ORDERED: MIDAZOLAM 1 MG/ML 2 ML INJ IV (07:30)
[2018-04-24] MEDS ORDERED: EPHEDrine SULFATE 50 MG/5 ML SYG IV (07:30)
[2018-04-24] MEDS ORDERED: CEFAZOLIN 1 GM INJ (07:30)
[2018-04-24] MEDS ORDERED: ATROPINE 1 MG/10 ML SYRINGE IV (07:30)
[2018-04-24] MEDS ORDERED: ONDANSETRON 4 MG INJ IV (07:30)
[2018-04-24] MEDS ORDERED: HYDROmorphONE 1 MG/5 ML IV SYRINGE IV ×3 (07:30)
[2018-04-24] MEDS ORDERED: LIDOCAINE 1% (MDV) 20 ML INJ (07:52)
[2018-04-24] MEDS: INSULIN ASPART [NOVOLOG] 3 ML PEN SC ×9 (07:54→20:57)
[2018-04-24] MEDS: POLYMYXIN/BACITRACIN 1L IRRIG (07:54)
[2018-04-24] MEDS: LIDOCAINE 1% (MDV) 20 ML INJ (08:13)
[2018-04-24] MEDS: FENOFIBRATE 145 MG TAB PO (10:51)
[2018-04-24] MEDS: GABAPENTIN 100 MG CAP PO ×3 (10:51→20:50)
[2018-04-24] MEDS: FUROSEMIDE 20 MG TAB PO (10:51)
[2018-04-24] MEDS: VITAMIN B COMPLEX/VIT C CAP PO (10:51)
[2018-04-24] MEDS: LISINOPRIL 20 MG TAB PO ×2 (10:52→20:54)
[2018-04-24] MEDS: CLOPIDOGREL 75 MG TAB PO (10:52)
[2018-04-24] MEDS: AMLODIPINE 5 MG TAB PO ×2 (10:52→20:53)
[2018-04-24] MEDS: SODIUM HYPOCHLORITE (1/40) 1 APPLIC BTL IRR (10:53)
[2018-04-24] MEDS: VANCOMYCIN 1 GM 250 ML IVPB (15:27)
[2018-04-24] MEDS: ATORVASTATIN 40 MG TAB PO (20:49)
[2018-04-24] MEDS: INSULIN GLARGINE [LANTus] (100 UNITS/ML) SYG SC (20:58)
[2018-04-25] MEDS: PIPER-TAZO 2.25 GM (PMX) 50 ML IVPB ×4 (00:05→18:06)
[2018-04-25] MEDS: ACCU-CHEK XX (02:00)
[2018-04-25 05:29] LABS: ADD MAN DIFF? NO
[2018-04-25 05:33] LABS: BASOPHILS % 0.4 % (0.0-2.0); EOSINOPHILS # 0.1 10^3/ul (0.0-0.5); EOSINOPHILS % 2.1 % (0.0-7.0); HEMATOCRIT 26.6 % (37.0-47.0); HEMOGLOBIN 8.6 g/dl (12.0-16.0); LYMPHOCYTES # 1.7 10^3/ul (0.8-2.9); LYMPHOCYTES % 24.9 % (15.0-51.0); MEAN CORPUSCULAR HEMOGLOBIN 28.2 pg (29.0-33.0); MEAN CORPUSCULAR HGB CONC 32.3 g/dl (32.0-37.0); MEAN CORPUSCULAR VOLUME 87.2 fl (82.0-101.0); MONOCYTE # 0.7 10^3/ul (0.3-0.9); MONOCYTES % 9.9 % (0.0-11.0); NEUTROPHIL # 4.2 10^3/ul (1.6-7.5); NEUTROPHILS % 62.4 % (39.0-77.0); PLATELET COUNT 292 10^3/UL (140-415); RED BLOOD COUNT 3.05 10^6/ul (4.20-5.40); RED CELL DISTRIBUTION WIDTH 12.9 % (11.5-14.5)
[2018-04-25 05:33] LABS: WHITE BLOOD COUNT 6.8 10^3/ul (4.8-10.8)
[2018-04-25 06:08] LABS: ALANINE AMINOTRANSFERASE 29 IU/L (13-69); ALBUMIN 3.5 g/dl (3.3-4.9); ALBUMIN/GLOBULIN RATIO 1.34; ALKALINE PHOSPHATASE 51 IU/L (42-121); ANION GAP 10 (8-16); ASPARTATE AMINO TRANSFERASE 33 IU/L (15-46); BILIRUBIN,INDIRECT 0.2 mg/dl (0-1.1); BILIRUBIN,TOTAL 0.2 mg/dl (0.2-1.3); BLOOD UREA NITROGEN 26 mg/dl (7-20); CALCIUM 9.1 mg/dl (8.4-10.2); CARBON DIOXIDE 25 mmol/L (21-31); CHLORIDE 110 mmol/L (97-110); CREATININE 1.89 mg/dl (0.44-1.00); GLUCOSE 117 mg/dl (70-220); POTASSIUM 3.5 mmol/L (3.5-5.1); SODIUM 141 mmol/L (135-144); TOTAL PROTEIN 6.1 g/dl (6.1-8.1)
[2018-04-25] MEDS: LEVOTHYROXINE 112 MCG TAB PO (06:19)
[2018-04-25] MEDS: SODIUM HYPOCHLORITE (1/40) 1 APPLIC BTL IRR (07:58)
[2018-04-25] MEDS: INSULIN ASPART [NOVOLOG] 3 ML PEN SC ×7 (08:00→21:00)
[2018-04-25] MEDS: CLOPIDOGREL 75 MG TAB PO (09:22)
[2018-04-25] MEDS: FENOFIBRATE 145 MG TAB PO (09:22)
[2018-04-25] MEDS: FUROSEMIDE 20 MG TAB PO (09:22)
[2018-04-25] MEDS: AMLODIPINE 5 MG TAB PO ×2 (09:22→22:02)
[2018-04-25] MEDS: LISINOPRIL 20 MG TAB PO ×2 (09:23→22:02)
[2018-04-25] MEDS: GABAPENTIN 100 MG CAP PO ×3 (09:23→22:04)
[2018-04-25] MEDS: VITAMIN B COMPLEX/VIT C CAP PO (09:28)
[2018-04-25] MEDS: VANCOMYCIN 1 GM 250 ML IVPB (15:40)
[2018-04-25] MEDS: SOD CHLORIDE 0.9% 1,000 ML IV (17:51)
[2018-04-25] MEDS: FERROUS SULFATE (EC) 325 MG TAB PO (22:02)
[2018-04-25] MEDS: ATORVASTATIN 40 MG TAB PO (22:35)
[2018-04-25] MEDS: VICTOZA SC (23:01)
[2018-04-25] MEDS: EPOETIN 2000 UNITS/ML INJ (NON ESRD/NON ONCOLOGY) SC (23:03)
[2018-04-25] MEDS: INSULIN GLARGINE [LANTus] (100 UNITS/ML) SYG SC (23:07)
[2018-04-26] MEDS: SOD CHLORIDE 0.9% 1,000 ML IV ×2 (00:44→20:01)
[2018-04-26] MEDS: ACCU-CHEK XX (02:00)
[2018-04-26] MEDS: PIPER-TAZO 2.25 GM (PMX) 50 ML IVPB ×4 (06:29→17:56)
[2018-04-26] MEDS: LEVOTHYROXINE 112 MCG TAB PO ×2 (06:29→09:13)
[2018-04-26] MEDS: INSULIN ASPART [NOVOLOG] 3 ML PEN SC ×7 (08:00→21:00)
[2018-04-26] MEDS: SODIUM HYPOCHLORITE (1/40) 1 APPLIC BTL IRR (09:00)
[2018-04-26] MEDS: CLOPIDOGREL 75 MG TAB PO (09:13)
[2018-04-26] MEDS: FUROSEMIDE 20 MG TAB PO (09:14)
[2018-04-26] MEDS: AMLODIPINE 5 MG TAB PO ×2 (09:14→21:30)
[2018-04-26] MEDS: VICTOZA SC (09:14)
[2018-04-26] MEDS: GABAPENTIN 100 MG CAP PO ×3 (09:14→21:27)
[2018-04-26] MEDS: FERROUS SULFATE (EC) 325 MG TAB PO ×2 (09:14→21:27)
[2018-04-26] MEDS: LISINOPRIL 20 MG TAB PO ×2 (09:14→21:29)
[2018-04-26] MEDS: FENOFIBRATE 145 MG TAB PO (09:14)
[2018-04-26] MEDS: VITAMIN B COMPLEX/VIT C CAP PO (09:14)
[2018-04-26] MEDS: VANCOMYCIN 1 GM 250 ML IVPB (16:16)
[2018-04-26] MEDS: ATORVASTATIN 40 MG TAB PO (21:26)
[2018-04-26] MEDS: INSULIN GLARGINE [LANTus] (100 UNITS/ML) SYG SC (21:37)
[2018-04-27] MEDS: ACCU-CHEK XX (02:00)
[2018-04-27] MEDS: PIPER-TAZO 2.25 GM (PMX) 50 ML IVPB ×4 (05:45→20:30)
[2018-04-27] MEDS: SODIUM HYPOCHLORITE (1/40) 1 APPLIC BTL IRR (09:00)
[2018-04-27] MEDS: FUROSEMIDE 20 MG TAB PO (09:37)
[2018-04-27] MEDS: FENOFIBRATE 145 MG TAB PO (09:37)
[2018-04-27] MEDS: VITAMIN B COMPLEX/VIT C CAP PO (09:37)
[2018-04-27] MEDS: LEVOTHYROXINE 112 MCG TAB PO (09:37)
[2018-04-27] MEDS: FERROUS SULFATE (EC) 325 MG TAB PO ×2 (09:37→20:38)
[2018-04-27] MEDS: GABAPENTIN 100 MG CAP PO ×3 (09:37→20:38)
[2018-04-27] MEDS: LISINOPRIL 20 MG TAB PO ×2 (09:38→20:40)
[2018-04-27] MEDS: CLOPIDOGREL 75 MG TAB PO (09:38)
[2018-04-27] MEDS: AMLODIPINE 5 MG TAB PO ×2 (09:38→20:39)
[2018-04-27] MEDS: INSULIN ASPART [NOVOLOG] 3 ML PEN SC ×7 (09:40→20:40)
[2018-04-27] MEDS: VICTOZA SC (09:42)
[2018-04-27] MEDS: SOD CHLORIDE 0.9% 1,000 ML IV ×2 (09:51→18:45)
[2018-04-27 14:34] LABS: VANCOMYCIN,TROUGH 13.1 ug/ml (10.0-20.0)
[2018-04-27] MEDS: VANCOMYCIN 1 GM 250 ML IVPB (17:07)
[2018-04-27] MEDS: EPOETIN 2000 UNITS/ML INJ (NON ESRD/NON ONCOLOGY) SC (18:33)
[2018-04-27] MEDS: FAMOTIDINE 20 MG TAB PO (18:42)
[2018-04-27] MEDS: INSULIN GLARGINE [LANTus] (100 UNITS/ML) SYG SC (20:37)
[2018-04-27] MEDS: ATORVASTATIN 40 MG TAB PO (20:38)
[2018-04-28] MEDS: PIPER-TAZO 2.25 GM (PMX) 50 ML IVPB ×5 (00:11→23:41)
[2018-04-28] MEDS: ACCU-CHEK XX (01:57)
[2018-04-28] MEDS: SOD CHLORIDE 0.9% 1,000 ML IV ×3 (05:51→16:41)
[2018-04-28 06:25] LABS: CREATININE 1.99 mg/dl (0.44-1.00)
[2018-04-28 06:25] LABS: BLOOD UREA NITROGEN 28 mg/dl (7-20)
[2018-04-28] MEDS: INSULIN ASPART [NOVOLOG] 3 ML PEN SC ×7 (08:00→21:00)
[2018-04-28] MEDS: VICTOZA SC (08:36)
[2018-04-28] MEDS: FENOFIBRATE 145 MG TAB PO (08:39)
[2018-04-28] MEDS: FERROUS SULFATE (EC) 325 MG TAB PO ×2 (08:39→21:26)
[2018-04-28] MEDS: GABAPENTIN 100 MG CAP PO ×3 (08:39→21:26)
[2018-04-28] MEDS: CLOPIDOGREL 75 MG TAB PO (08:39)
[2018-04-28] MEDS: VITAMIN B COMPLEX/VIT C CAP PO (08:39)
[2018-04-28] MEDS: FUROSEMIDE 20 MG TAB PO (08:40)
[2018-04-28] MEDS: AMLODIPINE 5 MG TAB PO ×2 (08:47→21:27)
[2018-04-28] MEDS: LISINOPRIL 20 MG TAB PO ×2 (08:47→21:27)
[2018-04-28] MEDS: SODIUM HYPOCHLORITE (1/40) 1 APPLIC BTL IRR (08:48)
[2018-04-28] MEDS: VANCOMYCIN 1 GM 250 ML IVPB (16:43)
[2018-04-28] MEDS: FAMOTIDINE 20 MG TAB PO (17:45)
[2018-04-28] MEDS: ATORVASTATIN 40 MG TAB PO (21:26)
[2018-04-28] MEDS: INSULIN GLARGINE [LANTus] (100 UNITS/ML) SYG SC (21:35)
[2018-04-29] MEDS: SOD CHLORIDE 0.9% 1,000 ML IV ×3 (01:51→15:59)
[2018-04-29] MEDS: ACCU-CHEK XX (02:00)
[2018-04-29] MEDS: PIPER-TAZO 2.25 GM (PMX) 50 ML IVPB ×3 (05:41→17:32)
[2018-04-29] MEDS: LEVOTHYROXINE 112 MCG TAB PO (06:35)
[2018-04-29] MEDS: FERROUS SULFATE (EC) 325 MG TAB PO ×2 (08:41→20:33)
[2018-04-29] MEDS: CLOPIDOGREL 75 MG TAB PO (08:41)
[2018-04-29] MEDS: GABAPENTIN 100 MG CAP PO ×3 (08:41→20:33)
[2018-04-29] MEDS: COLLAGENASE 5 GM (UD JAR) TOP (08:41)
[2018-04-29] MEDS: FUROSEMIDE 20 MG TAB PO (08:42)
[2018-04-29] MEDS: INSULIN ASPART [NOVOLOG] 3 ML PEN SC ×7 (08:42→20:37)
[2018-04-29] MEDS: VICTOZA SC (08:43)
[2018-04-29] MEDS: LISINOPRIL 20 MG TAB PO ×2 (08:44→20:37)
[2018-04-29] MEDS: VITAMIN B COMPLEX/VIT C CAP PO (08:45)
[2018-04-29] MEDS: FENOFIBRATE 145 MG TAB PO (08:45)
[2018-04-29] MEDS: AMLODIPINE 5 MG TAB PO ×2 (08:45→20:35)
[2018-04-29] MEDS: SODIUM HYPOCHLORITE (1/40) 1 APPLIC BTL IRR (09:00)
[2018-04-29] MEDS: VANCOMYCIN 1 GM 250 ML IVPB (15:55)
[2018-04-29] MEDS: FAMOTIDINE 20 MG TAB PO (17:32)
[2018-04-29] MEDS: ATORVASTATIN 40 MG TAB PO (20:33)
[2018-04-29] MEDS: INSULIN GLARGINE [LANTus] (100 UNITS/ML) SYG SC (20:44)
[2018-04-30] MEDS: PIPER-TAZO 2.25 GM (PMX) 50 ML IVPB ×4 (00:29→18:18)
[2018-04-30] MEDS: ACCU-CHEK XX (02:00)
[2018-04-30] MEDS: SOD CHLORIDE 0.9% 1,000 ML IV ×4 (04:42→23:00)
[2018-04-30 05:45] LABS: ADD MAN DIFF? NO
[2018-04-30 05:54] LABS: BASOPHILS % 0.4 % (0.0-2.0); EOSINOPHILS # 0.5 10^3/ul (0.0-0.5); EOSINOPHILS % 8.6 % (0.0-7.0); HEMOGLOBIN 8.6 g/dl (12.0-16.0); LYMPHOCYTES # 1.4 10^3/ul (0.8-2.9); MEAN CORPUSCULAR HEMOGLOBIN 28.1 pg (29.0-33.0); MEAN CORPUSCULAR HGB CONC 31.9 g/dl (32.0-37.0); MEAN CORPUSCULAR VOLUME 88.2 fl (82.0-101.0); MEAN PLATELET VOLUME 11.7 fl (7.4-10.4); MONOCYTE # 0.6 10^3/ul (0.3-0.9); MONOCYTES % 10.2 % (0.0-11.0); NEUTROPHIL # 3.1 10^3/ul (1.6-7.5); NEUTROPHILS % 55.6 % (39.0-77.0); PLATELET COUNT 226 10^3/UL (140-415); RED BLOOD COUNT 3.06 10^6/ul (4.20-5.40); RED CELL DISTRIBUTION WIDTH 13.2 % (11.5-14.5)
[2018-04-30 05:54] LABS: WHITE BLOOD COUNT 5.6 10^3/ul (4.8-10.8)
[2018-04-30 06:26] LABS: ANION GAP 10 (8-16); BLOOD UREA NITROGEN 29 mg/dl (7-20); CALCIUM 9.3 mg/dl (8.4-10.2); CARBON DIOXIDE 27 mmol/L (21-31); CHLORIDE 110 mmol/L (97-110); CREATININE 1.89 mg/dl (0.44-1.00); GLUCOSE 111 mg/dl (70-220); POTASSIUM 3.4 mmol/L (3.5-5.1); SODIUM 144 mmol/L (135-144)
[2018-04-30] MEDS: LEVOTHYROXINE 112 MCG TAB PO (07:01)
[2018-04-30] MEDS: INSULIN ASPART [NOVOLOG] 3 ML PEN SC ×7 (08:46→21:00)
[2018-04-30] MEDS: GABAPENTIN 100 MG CAP PO ×3 (08:48→21:56)
[2018-04-30] MEDS: AMLODIPINE 5 MG TAB PO ×2 (08:49→21:58)
[2018-04-30] MEDS: CLOPIDOGREL 75 MG TAB PO (08:49)
[2018-04-30] MEDS: FERROUS SULFATE (EC) 325 MG TAB PO ×2 (08:49→21:54)
[2018-04-30] MEDS: FENOFIBRATE 145 MG TAB PO (08:50)
[2018-04-30] MEDS: LISINOPRIL 20 MG TAB PO ×2 (08:50→21:58)
[2018-04-30] MEDS: FUROSEMIDE 20 MG TAB PO (08:50)
[2018-04-30] MEDS: VICTOZA SC (08:51)
[2018-04-30] MEDS: COLLAGENASE 5 GM (UD JAR) TOP (09:00)
[2018-04-30] MEDS: VITAMIN B COMPLEX/VIT C CAP PO (09:00)
[2018-04-30] MEDS: SODIUM HYPOCHLORITE (1/40) 1 APPLIC BTL IRR (09:00)
[2018-04-30] MEDS: POTASSIUM CHLORIDE (SR) 10 MEQ TAB PO (12:47)
[2018-04-30] MEDS: VANCOMYCIN 1 GM 250 ML IVPB (14:37)
[2018-04-30] MEDS: EPOETIN 2000 UNITS/ML INJ (NON ESRD/NON ONCOLOGY) SC (17:47)
[2018-04-30] MEDS: FAMOTIDINE 20 MG TAB PO (17:50)
[2018-04-30] MEDS: ATORVASTATIN 40 MG TAB PO (21:53)
[2018-04-30] MEDS: SACCHAROMYCES BOULARDII 250 MG CAP PO (21:54)
[2018-04-30] MEDS: INSULIN GLARGINE [LANTus] (100 UNITS/ML) SYG SC (22:02)
[2018-05-01] MEDS: PIPER-TAZO 2.25 GM (PMX) 50 ML IVPB ×4 (00:09→17:31)
[2018-05-01] MEDS: ACCU-CHEK XX (02:00)
[2018-05-01] MEDS: LEVOTHYROXINE 112 MCG TAB PO (06:09)
[2018-05-01] MEDS: INSULIN ASPART [NOVOLOG] 3 ML PEN SC ×6 (08:00→17:33)
[2018-05-01] MEDS: CLOPIDOGREL 75 MG TAB PO (08:14)
[2018-05-01] MEDS: GABAPENTIN 100 MG CAP PO ×2 (08:14→12:14)
[2018-05-01] MEDS: FUROSEMIDE 20 MG TAB PO (08:15)
[2018-05-01] MEDS: FENOFIBRATE 145 MG TAB PO (08:15)
[2018-05-01] MEDS: LISINOPRIL 20 MG TAB PO (08:15)
[2018-05-01] MEDS: FERROUS SULFATE (EC) 325 MG TAB PO (08:15)
[2018-05-01] MEDS: SACCHAROMYCES BOULARDII 250 MG CAP PO (08:15)
[2018-05-01] MEDS: VITAMIN B COMPLEX/VIT C CAP PO (08:15)
[2018-05-01] MEDS: AMLODIPINE 5 MG TAB PO (08:16)
[2018-05-01] MEDS: COLLAGENASE 5 GM (UD JAR) TOP (08:17)
[2018-05-01] MEDS: SODIUM HYPOCHLORITE (1/40) 1 APPLIC BTL IRR (08:17)
[2018-05-01] MEDS: VICTOZA SC (08:29)
[2018-05-01] MEDS: SOD CHLORIDE 0.9% 1,000 ML IV ×2 (13:51→17:33)
[2018-05-01] MEDS: VANCOMYCIN 1 GM 250 ML IVPB (15:00)
[2018-05-01] MEDS: FAMOTIDINE 20 MG TAB PO (17:26)
[2018-05-01] MEDS ORDERED: VANCOMYCIN 1 GM 250 ML IVPB (21:30)
== END 2018-05-01 18:30 | DRG 560 ==
LOC: 2NE 04-30 20:12 → E/R 09:30 → 2NE 12:50
PROC: 0QWGX5Z Revision of External Fixation Device in Right Tibia, External Approach (ICD-10-PCS; principal; 2018-04-24 07:30)
DX: T84.69XA Infection and inflammatory reaction due to internal fixation device of other site, initial encounter (principal); L03.115 Cellulitis of right lower limb; Z68.41 Body mass index [BMI] 40.0-44.9, adult; E03.9 Hypothyroidism, unspecified; E11.42 Type 2 diabetes mellitus with diabetic polyneuropathy; Z86.73 Personal history of transient ischemic attack (TIA), and cerebral infarction without residual deficits; I12.9 Hypertensive chronic kidney disease with stage 1 through stage 4 chronic kidney disease, or unspecified chronic kidney disease; E11.22 Type 2 diabetes mellitus with diabetic chronic kidney disease; N18.3 Chronic kidney disease, stage 3 (moderate); E78.5 Hyperlipidemia, unspecified; Z90.49 Acquired absence of other specified parts of digestive tract; E11.610 Type 2 diabetes mellitus with diabetic neuropathic arthropathy; E66.9 Obesity, unspecified; Z91.19 Patient's noncompliance with other medical treatment and regimen
CPT/HCPCS: 73600; 80048; 80053; 80202; 82565; 82962; 83036; 84520; 85025; 85610; 85730; 86850; 86900; 86901; 87040; 87081; 93005; 96374; 97110; 97161; 97165; 97530; 97535; 99285-25

== ENCOUNTER 2018-05-20 22:49 | Emergency (ER) | payer BC ==
[2018-05-20] MEDS: SOD CHLORIDE 0.9% 500 ML IV (23:26)
[2018-05-20 23:41] LABS: ABNORMAL IP MESSAGE 1; HEMATOCRIT 27.8 % (37.0-47.0); HEMOGLOBIN 8.8 g/dl (12.0-16.0); MEAN CORPUSCULAR HEMOGLOBIN 27.6 pg (29.0-33.0); MEAN CORPUSCULAR HGB CONC 31.7 g/dl (32.0-37.0); MEAN CORPUSCULAR VOLUME 87.1 fl (82.0-101.0); MEAN PLATELET VOLUME 11.4 fl (7.4-10.4); PLATELET COUNT 273 10^3/UL (140-415); RED BLOOD COUNT 3.19 10^6/ul (4.20-5.40)
[2018-05-20 23:41] LABS: WHITE BLOOD COUNT 10.3 10^3/ul (4.8-10.8)
[2018-05-20 23:47] LABS: ADD MAN DIFF? YES; POSITIVE DIFF @See below
[2018-05-20 23:49] LABS: ALANINE AMINOTRANSFERASE 23 IU/L (13-69); ALBUMIN 2.6 g/dl (3.3-4.9); ALBUMIN/GLOBULIN RATIO 0.92; ALKALINE PHOSPHATASE 45 IU/L (42-121); ANION GAP 16 (5-13); ASPARTATE AMINO TRANSFERASE 30 IU/L (15-46); BILIRUBIN,INDIRECT 0.1 mg/dl (0-1.1); BILIRUBIN,TOTAL 0.1 mg/dl (0.2-1.3); BLOOD UREA NITROGEN 58 mg/dl (7-20); CALCIUM 9.1 mg/dl (8.4-10.2); CARBON DIOXIDE 15 mmol/L (21-31); CHLORIDE 102 mmol/L (97-110); Estimated GFR 18 mL/min (>60); GLUCOSE 189 mg/dl (70-220); LIPASE 265 U/L (23-300); POTASSIUM 3.9 mmol/L (3.5-5.1); SODIUM 133 mmol/L (135-144); TOTAL PROTEIN 5.4 g/dl (6.1-8.1)
[2018-05-21] LABS: TROPONIN-I < 0.012 ng/ml (0.000-0.120)
[2018-05-21 01:09] LABS: ANISOCYTOSIS 1+ (0-0); BAND NEUTROPHILS #M 2.8 10^3/ul (0.0-0.6); BAND NEUTROPHILS % (M) 28 % (0-4); BASOPHIL #M 0.1 10^3/ul (0.0-0.0); BASOPHILS % (M) 1 % (0-2); EOSINOPHILS % (M) 9 % (0-7); GIANT THROMBO% (M) 2 % (0-0); LYMPHOCYTES % (M) 20 % (15-51); METAMYELOCYTES #M 0.5 10^3/ul (0.0-0.0); METAMYELOCYTES %M 5 % (0-0); MONOCYTE #M 0.6 10^3/ul (0.3-0.9); MONOCYTES % (M) 6 % (0-11); MYELOCYTES #M 0.2 10^3/ul (0.0-0.0); MYELOCYTES % (M) 2 % (0-0); OVALOCYTES 1+ (0-0); PLATELET ESTIMATE NORMAL; POIKILOCYTOSIS 1+ (0-0); POLYCHROMASIA 1+ (0-0); SEG NEUT #M 3.2 10^3/ul (1.6-7.5); SEGMENTED NEUTROPHILS (M) % 28 % (39-77); SMUDGE%M 3 % (0-0)
[2018-05-21] MEDS: IBUPROFEN 800 MG TAB PO (04:03)
== END 2018-05-21 04:15 | disposition home or self-care (01) ==
LOC: E/R 05-21 04:15
DX: R19.7 Diarrhea, unspecified (principal); E11.22 Type 2 diabetes mellitus with diabetic chronic kidney disease; N18.9 Chronic kidney disease, unspecified; R50.9 Fever, unspecified; Z86.73 Personal history of transient ischemic attack (TIA), and cerebral infarction without residual deficits; Z79.4 Long term (current) use of insulin
CPT/HCPCS: 36415; 74176; 80053; 83690; 84484; 85025; 87040; 93005; 99285-25

== ENCOUNTER 2018-06-16 00:04 | Inpatient (IN) | payer BC ==
[2018-06-16 02:15] LABS: ADD MAN DIFF? NO
[2018-06-16 02:20] LABS: BASOPHILS % 0.4 % (0.0-2.0); EOSINOPHILS # 0.2 10^3/ul (0.0-0.5); EOSINOPHILS % 2.9 % (0.0-7.0); HEMATOCRIT 25.5 % (37.0-47.0); HEMOGLOBIN 7.7 g/dl (12.0-16.0); LYMPHOCYTES # 2.1 10^3/ul (0.8-2.9); LYMPHOCYTES % 40.6 % (15.0-51.0); MEAN CORPUSCULAR HEMOGLOBIN 26.9 pg (29.0-33.0); MEAN CORPUSCULAR HGB CONC 30.2 g/dl (32.0-37.0); MEAN CORPUSCULAR VOLUME 89.2 fl (82.0-101.0); MEAN PLATELET VOLUME 9.3 fl (7.4-10.4); MONOCYTE # 0.5 10^3/ul (0.3-0.9); MONOCYTES % 10.3 % (0.0-11.0); NEUTROPHIL # 2.3 10^3/ul (1.6-7.5); PLATELET COUNT 302 10^3/UL (140-415); RED BLOOD COUNT 2.86 10^6/ul (4.20-5.40); RED CELL DISTRIBUTION WIDTH 16.9 % (11.5-14.5)
[2018-06-16 02:20] LABS: WHITE BLOOD COUNT 5.2 10^3/ul (4.8-10.8)
[2018-06-16 02:39] LABS: ANION GAP 8 (5-13); BLOOD UREA NITROGEN 15 mg/dl (7-20); CALCIUM 8.4 mg/dl (8.4-10.2); CARBON DIOXIDE 19 mmol/L (21-31); CHLORIDE 114 mmol/L (97-110); CREATININE 0.83 mg/dl (0.44-1.00); Estimated GFR > 60 mL/min (>60); GLUCOSE 170 mg/dl (70-220); POTASSIUM 3.1 mmol/L (3.5-5.1); SODIUM 141 mmol/L (135-144)
[2018-06-16] MEDS: POTASSIUM CHLORIDE (SR) 20 MEQ TAB PO (03:50)
[2018-06-16] MEDS ORDERED: ZOLPIDEM 5 MG TAB PO (07:00)
[2018-06-16] MEDS ORDERED: ONDANSETRON 4 MG TAB PO (07:00)
[2018-06-16] MEDS ORDERED: HYDROCODONE/APAP (5/325) TAB PO (07:00)
[2018-06-16] MEDS ORDERED: DOCUSATE SODIUM 100 MG CAP PO (07:00)
[2018-06-16] MEDS ORDERED: NACL 0.9% 3 ML SYG IV (07:00)
[2018-06-16] MEDS: LEVOTHYROXINE 112 MCG TAB PO (07:47)
[2018-06-16] MEDS: FUROSEMIDE 20 MG TAB PO (07:47)
[2018-06-16] MEDS ORDERED: GLUCOSE GEL 15 GRAM TUBE BUCCAL (08:00)
[2018-06-16] MEDS ORDERED: DEXTROSE 50% 50 ML SYRINGE IV ×2 (08:00)
[2018-06-16] MEDS: INSULIN ASPART [NOVOLOG] 3 ML PEN SC ×7 (08:00→20:03)
[2018-06-16] MEDS ORDERED: GLUCOSE GEL 15 GRAM TUBE PO ×2 (08:00)
[2018-06-16] MEDS ORDERED: GLUCAGON 1 MG INJ IM (08:00)
[2018-06-16 08:12] LABS: INR 1.07; PT RATIO 1.1
[2018-06-16 08:13] LABS: PARTIAL THROMBOPLASTIN TIME 31.6 Sec (23.0-35.0)
[2018-06-16] MEDS ORDERED: HEPARIN 5,000 UNIT/0.5 ML VIAL ×2 (08:13→19:39)
[2018-06-16 08:14] LABS: IRON 58 ug/dl (35-150)
[2018-06-16] MEDS: HEPARIN 5,000 UNIT/1 ML VIAL SC ×2 (08:15→20:05)
[2018-06-16] MEDS: FENOFIBRATE 145 MG TAB PO (08:16)
[2018-06-16] MEDS: VITAMIN B COMPLEX/VIT C CAP PO (08:17)
[2018-06-16] MEDS: GABAPENTIN 100 MG CAP PO ×3 (08:17→20:02)
[2018-06-16] MEDS: LISINOPRIL 20 MG TAB PO (08:17)
[2018-06-16] MEDS: NEBIVOLOL 5 MG TAB PO (08:17)
[2018-06-16] MEDS: FISH OIL 1,000 MG CAP PO ×2 (08:17→20:01)
[2018-06-16] MEDS: CLOPIDOGREL 75 MG TAB PO (08:17)
[2018-06-16] MEDS: FAMOTIDINE 20 MG TAB PO ×2 (08:17→20:03)
[2018-06-16] MEDS: AMLODIPINE 5 MG TAB PO (08:17)
[2018-06-16] MEDS: LIDOCAINE 5% PATCH TD (08:19)
[2018-06-16 08:24] LABS: % IRON SATURATION 28 % SAT (22-52); TOTAL IRON BINDING CAPACITY 208 ug/dl (241-421)
[2018-06-16] MEDS ORDERED: EXENATIDE 250 MCG/ML 2.4ML PEN SC (09:00)
[2018-06-16] MEDS ORDERED: NON-FORMULARY/PATIENT OWN MED (Fenofibrate, Micronized (Fenofibrate) 134 MG) PO (09:00)
[2018-06-16] MEDS: ACCU-CHEK XX ×3 (10:00→20:05)
[2018-06-16] MEDS ORDERED: COLLAGENASE 5 GM (UD JAR) TOP (10:21)
[2018-06-16] MEDS: RIFAXIMIN 200 MG TAB PO ×3 (11:09→20:02)
[2018-06-16] MEDS: VANCOMYCIN HCL 250 MG/5ML POSYG PO ×3 (12:28→23:54)
[2018-06-16] MEDS: COLLAGENASE 5 GM (UD JAR) TOP (12:30)
[2018-06-16] MEDS: INSULIN GLARGINE [LANTus] (100 UNITS/ML) SYG SC (20:00)
[2018-06-16] MEDS: ATORVASTATIN 40 MG TAB PO (20:08)
[2018-06-16] MEDS: LOPERAMIDE 2 MG CAP PO (22:04)
[2018-06-16 23:04] LABS: ADD UMIC YES; UR ASCORBIC ACID 40 mg/dL (NEGATIVE); UR BACTERIA FEW /HPF (NONE SEEN); UR BILIRUBIN (Dip) NEGATIVE (NEGATIVE); UR BLOOD (Dip) NEGATIVE (NEGATIVE); UR CLARITY SLIGHTLY CLOUDY (CLEAR); UR COLOR YELLOW (YELLOW); UR GLUCOSE (Dip) NEGATIVE (NEGATIVE); UR KETONES (Dip) NEGATIVE (NEGATIVE); UR LEUKOCYTE ESTERASE (Dip) 1+ Leu/ul (NEGATIVE); UR NITRITE (Dip) NEGATIVE (NEGATIVE); UR RBC 1 /HPF (0-5); UR SPECIFIC GRAVITY (Dip) 1.016 (1.003-1.030); UR SQUAMOUS EPITHELIAL CELL FEW /HPF (FEW); UR TOTAL PROTEIN (Dip) NEGATIVE (NEGATIVE); UR TRANSITIONAL EPI CELL FEW /HPF (NONE SEEN); UR UROBILINOGEN (Dip) NEGATIVE (NEGATIVE); UR WBC 10 /HPF (0-5)
[2018-06-16] MEDS: hydrALAzine 20 MG INJ IV (23:54)
[2018-06-17 05:08] LABS: ADD MAN DIFF? NO
[2018-06-17 05:20] LABS: BASOPHILS % 0.4 % (0.0-2.0); EOSINOPHILS # 0.1 10^3/ul (0.0-0.5); HEMATOCRIT 25.6 % (37.0-47.0); HEMOGLOBIN 7.8 g/dl (12.0-16.0); LYMPHOCYTES # 2.1 10^3/ul (0.8-2.9); LYMPHOCYTES % 42.9 % (15.0-51.0); MEAN CORPUSCULAR HEMOGLOBIN 27.4 pg (29.0-33.0); MEAN CORPUSCULAR HGB CONC 30.5 g/dl (32.0-37.0); MEAN CORPUSCULAR VOLUME 89.8 fl (82.0-101.0); MEAN PLATELET VOLUME 9.8 fl (7.4-10.4); MONOCYTE # 0.6 10^3/ul (0.3-0.9); MONOCYTES % 11.1 % (0.0-11.0); NEUTROPHIL # 2.1 10^3/ul (1.6-7.5); PLATELET COUNT 283 10^3/UL (140-415); RED BLOOD COUNT 2.85 10^6/ul (4.20-5.40); RED CELL DISTRIBUTION WIDTH 17.2 % (11.5-14.5)
[2018-06-17 05:46] LABS: LACTIC ACID 0.9 mmol/L (0.5-2.0)
[2018-06-17] MEDS: LEVOTHYROXINE 112 MCG TAB PO (06:03)
[2018-06-17] MEDS: FUROSEMIDE 20 MG TAB PO (06:03)
[2018-06-17] MEDS: VANCOMYCIN HCL 250 MG/5ML POSYG PO ×4 (06:05→23:14)
[2018-06-17 06:39] LABS: ALANINE AMINOTRANSFERASE 38 IU/L (13-69); ALBUMIN 2.2 g/dl (3.3-4.9); ALBUMIN/GLOBULIN RATIO 0.91; ALKALINE PHOSPHATASE 104 IU/L (42-121); ANION GAP 9 (5-13); ASPARTATE AMINO TRANSFERASE 37 IU/L (15-46); BILIRUBIN,INDIRECT 0.2 mg/dl (0-1.1); BILIRUBIN,TOTAL 0.2 mg/dl (0.2-1.3); BLOOD UREA NITROGEN 15 mg/dl (7-20); CALCIUM 8.2 mg/dl (8.4-10.2); CARBON DIOXIDE 19 mmol/L (21-31); CHLORIDE 117 mmol/L (97-110); CREATININE 1.01 mg/dl (0.44-1.00); Estimated GFR 56 mL/min (>60); GLUCOSE 124 mg/dl (70-220); POTASSIUM 3.4 mmol/L (3.5-5.1); SODIUM 145 mmol/L (135-144); TOTAL PROTEIN 4.6 g/dl (6.1-8.1)
[2018-06-17] MEDS ORDERED: HEPARIN 5,000 UNIT/0.5 ML VIAL ×2 (07:30→20:24)
[2018-06-17 07:33] LABS: ERYTHROCYTE SEDIMENTATION RATE 29 mm/Hr (0-30)
[2018-06-17] MEDS: INSULIN ASPART [NOVOLOG] 3 ML PEN SC ×7 (08:00→21:00)
[2018-06-17] MEDS: HEPARIN 5,000 UNIT/1 ML VIAL SC ×2 (08:14→21:27)
[2018-06-17] MEDS: GABAPENTIN 100 MG CAP PO ×3 (08:15→21:24)
[2018-06-17] MEDS: RIFAXIMIN 200 MG TAB PO ×3 (08:15→21:27)
[2018-06-17] MEDS: CLOPIDOGREL 75 MG TAB PO (08:15)
[2018-06-17] MEDS: LISINOPRIL 20 MG TAB PO (08:15)
[2018-06-17] MEDS: VITAMIN B COMPLEX/VIT C CAP PO (08:15)
[2018-06-17] MEDS: FISH OIL 1,000 MG CAP PO ×2 (08:16→21:24)
[2018-06-17] MEDS: AMLODIPINE 5 MG TAB PO (08:16)
[2018-06-17] MEDS: FENOFIBRATE 145 MG TAB PO (08:16)
[2018-06-17] MEDS: FAMOTIDINE 20 MG TAB PO ×2 (08:16→21:24)
[2018-06-17] MEDS: NEBIVOLOL 5 MG TAB PO (08:16)
[2018-06-17] MEDS: LIDOCAINE 5% PATCH TD (08:17)
[2018-06-17] MEDS: ACCU-CHEK XX ×3 (10:34→20:05)
[2018-06-17] MEDS: COLLAGENASE 5 GM (UD JAR) TOP (10:34)
[2018-06-17] MEDS: POTASSIUM CHLORIDE (SR) 20 MEQ TAB PO (13:02)
[2018-06-17] MEDS: ATORVASTATIN 40 MG TAB PO (21:24)
[2018-06-17] MEDS: INSULIN GLARGINE [LANTus] (100 UNITS/ML) SYG SC (21:26)
[2018-06-17] MEDS: LOPERAMIDE 2 MG CAP PO (21:38)
[2018-06-18] MEDS: hydrALAzine 20 MG INJ IV ×2 (02:36→13:39)
[2018-06-18] MEDS: LEVOTHYROXINE 112 MCG TAB PO (06:30)
[2018-06-18] MEDS: VANCOMYCIN HCL 250 MG/5ML POSYG PO ×4 (06:30→23:57)
[2018-06-18] MEDS: FUROSEMIDE 20 MG TAB PO (06:30)
[2018-06-18 06:55] LABS: ANION GAP 6 (5-13); BLOOD UREA NITROGEN 15 mg/dl (7-20); CALCIUM 8.4 mg/dl (8.4-10.2); CARBON DIOXIDE 22 mmol/L (21-31); CHLORIDE 116 mmol/L (97-110); CREATININE 1.04 mg/dl (0.44-1.00); Estimated GFR 54 mL/min (>60); GLUCOSE 132 mg/dl (70-220); POTASSIUM 3.8 mmol/L (3.5-5.1); SODIUM 144 mmol/L (135-144)
[2018-06-18] MEDS: INSULIN ASPART [NOVOLOG] 3 ML PEN SC ×7 (08:00→21:00)
[2018-06-18] MEDS ORDERED: HEPARIN 5,000 UNIT/0.5 ML VIAL ×2 (08:20→19:58)
[2018-06-18] MEDS: LISINOPRIL 20 MG TAB PO ×2 (08:46→20:21)
[2018-06-18] MEDS: NEBIVOLOL 5 MG TAB PO (08:47)
[2018-06-18] MEDS: FISH OIL 1,000 MG CAP PO ×2 (08:47→20:11)
[2018-06-18] MEDS: CLOPIDOGREL 75 MG TAB PO (08:47)
[2018-06-18] MEDS: GABAPENTIN 100 MG CAP PO ×3 (08:47→20:11)
[2018-06-18] MEDS: FENOFIBRATE 145 MG TAB PO (08:48)
[2018-06-18] MEDS: RIFAXIMIN 200 MG TAB PO ×3 (08:48→20:11)
[2018-06-18] MEDS: AMLODIPINE 5 MG TAB PO (08:48)
[2018-06-18] MEDS: VITAMIN B COMPLEX/VIT C CAP PO (08:49)
[2018-06-18] MEDS: FAMOTIDINE 20 MG TAB PO ×2 (08:49→20:11)
[2018-06-18] MEDS: HEPARIN 5,000 UNIT/1 ML VIAL SC ×2 (08:50→20:17)
[2018-06-18] MEDS ORDERED: VICTOZA SC ×2 (09:00)
[2018-06-18] MEDS: COLLAGENASE 5 GM (UD JAR) TOP (09:00)
[2018-06-18] MEDS ORDERED: PATIENT'S OWN MEDICATION SC (09:00)
[2018-06-18] MEDS: LIDOCAINE 5% PATCH TD (09:00)
[2018-06-18] MEDS: VICTOZA SC (09:31)
[2018-06-18] MEDS: ACCU-CHEK XX ×3 (10:00→20:05)
[2018-06-18] MEDS: POTASSIUM CHLORIDE (SR) 20 MEQ TAB PO (11:58)
[2018-06-18] MEDS: CYANOCOBALAMIN 1000 MCG INJ IM (13:32)
[2018-06-18] MEDS: LEVOFLOXACIN 500 MG TAB PO (14:10)
[2018-06-18] MEDS: EPOETIN 10000 UNITS/ML (NON ESRD/NON ONCOLOGY) SC (18:01)
[2018-06-18] MEDS: INSULIN GLARGINE [LANTus] (100 UNITS/ML) SYG SC (20:10)
[2018-06-18] MEDS: ATORVASTATIN 40 MG TAB PO (20:11)
[2018-06-18] MEDS ORDERED: METOCLOPRAMIDE 10 MG INJ IV (23:00)
[2018-06-19] MEDS: LOPERAMIDE 2 MG CAP PO (04:08)
[2018-06-19 06:16] LABS: ADD MAN DIFF? NO
[2018-06-19 06:18] LABS: BASOPHILS % 0.4 % (0.0-2.0); EOSINOPHILS # 0.1 10^3/ul (0.0-0.5); EOSINOPHILS % 2.9 % (0.0-7.0); HEMATOCRIT 29.4 % (37.0-47.0); HEMOGLOBIN 8.9 g/dl (12.0-16.0); LYMPHOCYTES # 2.2 10^3/ul (0.8-2.9); LYMPHOCYTES % 46.5 % (15.0-51.0); MEAN CORPUSCULAR HEMOGLOBIN 27.9 pg (29.0-33.0); MEAN CORPUSCULAR HGB CONC 30.3 g/dl (32.0-37.0); MEAN CORPUSCULAR VOLUME 92.2 fl (82.0-101.0); MEAN PLATELET VOLUME 9.8 fl (7.4-10.4); MONOCYTE # 0.5 10^3/ul (0.3-0.9); NEUTROPHIL # 1.9 10^3/ul (1.6-7.5); NEUTROPHILS % 39.4 % (39.0-77.0); PLATELET COUNT 281 10^3/UL (140-415); RED BLOOD COUNT 3.19 10^6/ul (4.20-5.40); RED CELL DISTRIBUTION WIDTH 18.4 % (11.5-14.5)
[2018-06-19 06:18] LABS: WHITE BLOOD COUNT 4.8 10^3/ul (4.8-10.8)
[2018-06-19] MEDS: LEVOFLOXACIN 500 MG TAB PO (06:23)
[2018-06-19] MEDS: VANCOMYCIN HCL 250 MG/5ML POSYG PO ×3 (06:23→18:16)
[2018-06-19] MEDS: LEVOTHYROXINE 112 MCG TAB PO (06:23)
[2018-06-19 07:16] LABS: ALANINE AMINOTRANSFERASE 41 IU/L (13-69); ALBUMIN 2.5 g/dl (3.3-4.9); ALBUMIN/GLOBULIN RATIO 0.89; ALKALINE PHOSPHATASE 81 IU/L (42-121); ANION GAP 8 (5-13); ASPARTATE AMINO TRANSFERASE 45 IU/L (15-46); BILIRUBIN,INDIRECT 0.3 mg/dl (0-1.1); BILIRUBIN,TOTAL 0.3 mg/dl (0.2-1.3); BLOOD UREA NITROGEN 13 mg/dl (7-20); CALCIUM 8.2 mg/dl (8.4-10.2); CARBON DIOXIDE 23 mmol/L (21-31); CHLORIDE 111 mmol/L (97-110); Estimated GFR > 60 mL/min (>60); GLUCOSE 149 mg/dl (70-220); POTASSIUM 3.5 mmol/L (3.5-5.1); SODIUM 142 mmol/L (135-144); TOTAL PROTEIN 5.3 g/dl (6.1-8.1)
[2018-06-19] MEDS: INSULIN ASPART [NOVOLOG] 3 ML PEN SC ×7 (08:00→21:00)
[2018-06-19] MEDS ORDERED: HEPARIN 5,000 UNIT/0.5 ML VIAL ×2 (08:34→20:00)
[2018-06-19] MEDS: FISH OIL 1,000 MG CAP PO ×2 (08:48→20:18)
[2018-06-19] MEDS: FENOFIBRATE 145 MG TAB PO (08:49)
[2018-06-19] MEDS: FAMOTIDINE 20 MG TAB PO ×2 (08:49→20:19)
[2018-06-19] MEDS: CYANOCOBALAMIN 500 MCG TAB PO (08:49)
[2018-06-19] MEDS: CLOPIDOGREL 75 MG TAB PO (08:49)
[2018-06-19] MEDS: VITAMIN B COMPLEX/VIT C CAP PO (08:49)
[2018-06-19] MEDS: LISINOPRIL 20 MG TAB PO ×2 (08:50→20:20)
[2018-06-19] MEDS: AMLODIPINE 5 MG TAB PO (08:50)
[2018-06-19] MEDS: GABAPENTIN 100 MG CAP PO ×3 (08:50→20:19)
[2018-06-19] MEDS: NEBIVOLOL 5 MG TAB PO (08:51)
[2018-06-19] MEDS: COLLAGENASE 5 GM (UD JAR) TOP (08:53)
[2018-06-19] MEDS: LIDOCAINE 5% PATCH TD (08:53)
[2018-06-19] MEDS: HEPARIN 5,000 UNIT/1 ML VIAL SC ×2 (08:54→20:18)
[2018-06-19] MEDS: VICTOZA SC (08:56)
[2018-06-19] MEDS: RIFAXIMIN 200 MG TAB PO ×3 (09:25→20:19)
[2018-06-19] MEDS: ACCU-CHEK XX ×3 (10:00→20:05)
[2018-06-19] MEDS: INSULIN GLARGINE [LANTus] (100 UNITS/ML) SYG SC (20:17)
[2018-06-19] MEDS: ATORVASTATIN 40 MG TAB PO (20:19)
[2018-06-19] MEDS: SACCHAROMYCES BOULARDII 250 MG CAP PO (20:19)
[2018-06-19] MEDS: CEFEPIME 2GM/50 ML (PMX) 50 ML IVPB (21:08)
[2018-06-20] MEDS: VANCOMYCIN HCL 250 MG/5ML POSYG PO ×4 (00:06→17:42)
[2018-06-20] MEDS: LEVOTHYROXINE 112 MCG TAB PO (06:05)
[2018-06-20] MEDS: INSULIN ASPART [NOVOLOG] 3 ML PEN SC ×7 (08:00→20:27)
[2018-06-20] MEDS ORDERED: HEPARIN 5,000 UNIT/0.5 ML VIAL ×2 (08:13→20:04)
[2018-06-20] MEDS: VICTOZA SC (08:26)
[2018-06-20] MEDS: HEPARIN 5,000 UNIT/1 ML VIAL SC ×2 (08:27→20:22)
[2018-06-20] MEDS: LIDOCAINE 5% PATCH TD (08:30)
[2018-06-20] MEDS: COLLAGENASE 5 GM (UD JAR) TOP (08:30)
[2018-06-20] MEDS: SACCHAROMYCES BOULARDII 250 MG CAP PO ×2 (08:35→21:42)
[2018-06-20] MEDS: FAMOTIDINE 20 MG TAB PO ×2 (08:35→20:19)
[2018-06-20] MEDS: GABAPENTIN 100 MG CAP PO ×3 (08:35→20:20)
[2018-06-20] MEDS: FENOFIBRATE 145 MG TAB PO (08:35)
[2018-06-20] MEDS: CLOPIDOGREL 75 MG TAB PO (08:35)
[2018-06-20] MEDS: FISH OIL 1,000 MG CAP PO ×2 (08:35→20:19)
[2018-06-20] MEDS: VITAMIN B COMPLEX/VIT C CAP PO (08:35)
[2018-06-20] MEDS: CYANOCOBALAMIN 500 MCG TAB PO (08:35)
[2018-06-20] MEDS: LISINOPRIL 20 MG TAB PO ×2 (08:36→20:20)
[2018-06-20] MEDS: AMLODIPINE 5 MG TAB PO (08:36)
[2018-06-20] MEDS: NEBIVOLOL 5 MG TAB PO (08:36)
[2018-06-20] MEDS: CEFEPIME 2GM/50 ML (PMX) 50 ML IVPB ×2 (08:47→21:42)
[2018-06-20] MEDS: RIFAXIMIN 200 MG TAB PO ×3 (09:54→20:19)
[2018-06-20] MEDS: ACCU-CHEK XX ×3 (10:00→20:38)
[2018-06-20] MEDS: EPOETIN 10000 UNITS/ML (NON ESRD/NON ONCOLOGY) SC (17:44)
[2018-06-20] MEDS: LIDOCAINE 1% (MPF) 5 ML VIAL SC ×2 (19:30)
[2018-06-20] MEDS: ATORVASTATIN 40 MG TAB PO (20:19)
[2018-06-20] MEDS: INSULIN GLARGINE [LANTus] (100 UNITS/ML) SYG SC (20:23)
[2018-06-21] MEDS: VANCOMYCIN HCL 250 MG/5ML POSYG PO ×4 (00:14→17:57)
[2018-06-21 06:03] LABS: ADD MAN DIFF? NO
[2018-06-21] MEDS: LEVOTHYROXINE 112 MCG TAB PO (06:06)
[2018-06-21 06:08] LABS: WHITE BLOOD COUNT 4.6 10^3/ul (4.8-10.8)
[2018-06-21 06:08] LABS: BASOPHILS % 0.2 % (0.0-2.0); EOSINOPHILS # 0.2 10^3/ul (0.0-0.5); EOSINOPHILS % 3.7 % (0.0-7.0); HEMATOCRIT 27.7 % (37.0-47.0); HEMOGLOBIN 8.4 g/dl (12.0-16.0); LYMPHOCYTES # 2.3 10^3/ul (0.8-2.9); LYMPHOCYTES % 49.5 % (15.0-51.0); MEAN CORPUSCULAR HEMOGLOBIN 27.9 pg (29.0-33.0); MEAN CORPUSCULAR HGB CONC 30.3 g/dl (32.0-37.0); MEAN PLATELET VOLUME 10.1 fl (7.4-10.4); MONOCYTE # 0.5 10^3/ul (0.3-0.9); MONOCYTES % 10.5 % (0.0-11.0); NEUTROPHIL # 1.6 10^3/ul (1.6-7.5); NEUTROPHILS % 35.9 % (39.0-77.0); PLATELET COUNT 248 10^3/UL (140-415); RED BLOOD COUNT 3.01 10^6/ul (4.20-5.40); RED CELL DISTRIBUTION WIDTH 18.5 % (11.5-14.5)
[2018-06-21 07:09] LABS: ALBUMIN 2.6 g/dl (3.3-4.9); ANION GAP 8 (5-13); BLOOD UREA NITROGEN 13 mg/dl (7-20); CALCIUM 8.7 mg/dl (8.4-10.2); CARBON DIOXIDE 22 mmol/L (21-31); CHLORIDE 111 mmol/L (97-110); CREATININE 0.88 mg/dl (0.44-1.00); GLUCOSE 92 mg/dl (70-220); PHOSPHORUS 4.1 mg/dl (2.5-4.9); POTASSIUM 3.2 mmol/L (3.5-5.1); SODIUM 141 mmol/L (135-144)
[2018-06-21] MEDS: INSULIN ASPART [NOVOLOG] 3 ML PEN SC ×7 (08:00→21:00)
[2018-06-21] MEDS: LIDOCAINE 5% PATCH TD (09:00)
[2018-06-21] MEDS: CYANOCOBALAMIN 500 MCG TAB PO (09:22)
[2018-06-21] MEDS: VITAMIN B COMPLEX/VIT C CAP PO (09:22)
[2018-06-21] MEDS: FAMOTIDINE 20 MG TAB PO ×2 (09:22→20:19)
[2018-06-21] MEDS: FENOFIBRATE 145 MG TAB PO (09:22)
[2018-06-21] MEDS: SACCHAROMYCES BOULARDII 250 MG CAP PO ×2 (09:22→20:20)
[2018-06-21] MEDS: COLLAGENASE 5 GM (UD JAR) TOP (09:22)
[2018-06-21] MEDS: NEBIVOLOL 5 MG TAB PO (09:23)
[2018-06-21] MEDS: RIFAXIMIN 200 MG TAB PO ×3 (09:23→20:20)
[2018-06-21] MEDS: LISINOPRIL 20 MG TAB PO ×2 (09:24→20:21)
[2018-06-21] MEDS ORDERED: HEPARIN 5,000 UNIT/0.5 ML VIAL ×2 (09:29→19:52)
[2018-06-21] MEDS: VICTOZA SC (09:35)
[2018-06-21] MEDS: HEPARIN 5,000 UNIT/1 ML VIAL SC ×2 (09:36→20:18)
[2018-06-21] MEDS: CLOPIDOGREL 75 MG TAB PO (09:37)
[2018-06-21] MEDS: FISH OIL 1,000 MG CAP PO ×2 (09:38→20:19)
[2018-06-21] MEDS: AMLODIPINE 5 MG TAB PO (09:38)
[2018-06-21] MEDS: GABAPENTIN 100 MG CAP PO ×3 (09:38→20:20)
[2018-06-21] MEDS: ACCU-CHEK XX ×3 (09:52→20:23)
[2018-06-21] MEDS: CEFEPIME 2GM/50 ML (PMX) 50 ML IVPB ×2 (12:52→20:21)
[2018-06-21] MEDS: HYDROCODONE/APAP (5/325) TAB PO (18:37)
[2018-06-21] MEDS: INSULIN GLARGINE [LANTus] (100 UNITS/ML) SYG SC (20:17)
[2018-06-21] MEDS: ATORVASTATIN 40 MG TAB PO (20:19)
[2018-06-22] MEDS: VANCOMYCIN HCL 250 MG/5ML POSYG PO ×5 (00:24→23:50)
[2018-06-22] MEDS: LEVOTHYROXINE 112 MCG TAB PO (06:05)
[2018-06-22] MEDS ORDERED: HEPARIN 5,000 UNIT/0.5 ML VIAL ×2 (07:39→20:12)
[2018-06-22] MEDS: HYDROCODONE/APAP (5/325) TAB PO ×2 (07:46→18:11)
[2018-06-22] MEDS: INSULIN ASPART [NOVOLOG] 3 ML PEN SC ×7 (07:57→20:32)
[2018-06-22] MEDS: CEFEPIME 2GM/50 ML (PMX) 50 ML IVPB ×2 (08:01→20:32)
[2018-06-22] MEDS: HEPARIN 5,000 UNIT/1 ML VIAL SC ×2 (08:02→20:28)
[2018-06-22] MEDS: VICTOZA SC (08:03)
[2018-06-22] MEDS: LIDOCAINE 5% PATCH TD (08:03)
[2018-06-22] MEDS: FISH OIL 1,000 MG CAP PO ×2 (08:06→20:30)
[2018-06-22] MEDS: NEBIVOLOL 5 MG TAB PO (08:06)
[2018-06-22] MEDS: CYANOCOBALAMIN 500 MCG TAB PO (08:07)
[2018-06-22] MEDS: SACCHAROMYCES BOULARDII 250 MG CAP PO ×2 (08:07→20:30)
[2018-06-22] MEDS: GABAPENTIN 100 MG CAP PO ×3 (08:07→20:30)
[2018-06-22] MEDS: VITAMIN B COMPLEX/VIT C CAP PO (08:07)
[2018-06-22] MEDS: FAMOTIDINE 20 MG TAB PO ×2 (08:07→20:30)
[2018-06-22] MEDS: FENOFIBRATE 145 MG TAB PO (08:07)
[2018-06-22] MEDS: CLOPIDOGREL 75 MG TAB PO (08:07)
[2018-06-22] MEDS: LISINOPRIL 20 MG TAB PO ×2 (08:08→20:33)
[2018-06-22] MEDS: RIFAXIMIN 200 MG TAB PO ×3 (08:08→23:50)
[2018-06-22] MEDS: AMLODIPINE 5 MG TAB PO (08:09)
[2018-06-22] MEDS: COLLAGENASE 5 GM (UD JAR) TOP (08:09)
[2018-06-22] MEDS: ACCU-CHEK XX ×3 (10:48→20:05)
[2018-06-22] MEDS: EPOETIN 10000 UNITS/ML (NON ESRD/NON ONCOLOGY) SC (18:41)
[2018-06-22] MEDS: INSULIN GLARGINE [LANTus] (100 UNITS/ML) SYG SC (20:28)
[2018-06-22] MEDS: ATORVASTATIN 40 MG TAB PO (20:30)
[2018-06-22] MEDS: OXYCODONE/ACETAMINOPHEN (5/325) TAB PO (20:58)
[2018-06-23 05:17] LABS: ADD MAN DIFF? NO
[2018-06-23 05:24] LABS: WHITE BLOOD COUNT 5.6 10^3/ul (4.8-10.8)
[2018-06-23 05:24] LABS: BASOPHILS % 0.4 % (0.0-2.0); EOSINOPHILS # 0.3 10^3/ul (0.0-0.5); EOSINOPHILS % 5.6 % (0.0-7.0); HEMATOCRIT 27.8 % (37.0-47.0); HEMOGLOBIN 8.5 g/dl (12.0-16.0); LYMPHOCYTES # 2.6 10^3/ul (0.8-2.9); LYMPHOCYTES % 47.1 % (15.0-51.0); MEAN CORPUSCULAR HEMOGLOBIN 28.4 pg (29.0-33.0); MEAN CORPUSCULAR HGB CONC 30.6 g/dl (32.0-37.0); MEAN PLATELET VOLUME 10.7 fl (7.4-10.4); MONOCYTE # 0.5 10^3/ul (0.3-0.9); MONOCYTES % 9.3 % (0.0-11.0); NEUTROPHIL # 2.1 10^3/ul (1.6-7.5); NEUTROPHILS % 37.2 % (39.0-77.0); PLATELET COUNT 240 10^3/UL (140-415); RED BLOOD COUNT 2.99 10^6/ul (4.20-5.40); RED CELL DISTRIBUTION WIDTH 18.8 % (11.5-14.5)
[2018-06-23 05:58] LABS: ANION GAP 8 (5-13); BLOOD UREA NITROGEN 31 mg/dl (7-20); CALCIUM 8.8 mg/dl (8.4-10.2); CARBON DIOXIDE 23 mmol/L (21-31); CHLORIDE 112 mmol/L (97-110); Estimated GFR 46 mL/min (>60); GLUCOSE 121 mg/dl (70-220); POTASSIUM 3.4 mmol/L (3.5-5.1); SODIUM 143 mmol/L (135-144)
[2018-06-23] MEDS: LEVOTHYROXINE 112 MCG TAB PO (06:19)
[2018-06-23] MEDS: VANCOMYCIN HCL 250 MG/5ML POSYG PO (06:19)
[2018-06-23] MEDS: INSULIN ASPART [NOVOLOG] 3 ML PEN SC ×7 (08:00→20:21)
[2018-06-23] MEDS ORDERED: HEPARIN 5,000 UNIT/0.5 ML VIAL ×2 (08:25→20:02)
[2018-06-23] MEDS: VICTOZA SC (08:39)
[2018-06-23] MEDS: FISH OIL 1,000 MG CAP PO ×2 (08:40→20:15)
[2018-06-23] MEDS: COLLAGENASE 5 GM (UD JAR) TOP (08:41)
[2018-06-23] MEDS: CLOPIDOGREL 75 MG TAB PO (08:41)
[2018-06-23] MEDS: VITAMIN B COMPLEX/VIT C CAP PO (08:41)
[2018-06-23] MEDS: NEBIVOLOL 5 MG TAB PO (08:41)
[2018-06-23] MEDS: LISINOPRIL 20 MG TAB PO ×2 (08:41→20:24)
[2018-06-23] MEDS: CYANOCOBALAMIN 500 MCG TAB PO (08:42)
[2018-06-23] MEDS: GABAPENTIN 100 MG CAP PO ×3 (08:42→20:15)
[2018-06-23] MEDS: AMLODIPINE 5 MG TAB PO (08:42)
[2018-06-23] MEDS: FENOFIBRATE 145 MG TAB PO (08:42)
[2018-06-23] MEDS: FAMOTIDINE 20 MG TAB PO ×2 (08:42→20:16)
[2018-06-23] MEDS: SACCHAROMYCES BOULARDII 250 MG CAP PO ×2 (08:42→20:16)
[2018-06-23] MEDS: HEPARIN 5,000 UNIT/1 ML VIAL SC ×2 (08:44→20:20)
[2018-06-23] MEDS: CEFEPIME 2GM/50 ML (PMX) 50 ML IVPB ×2 (08:44→20:13)
[2018-06-23] MEDS: LIDOCAINE 5% PATCH TD (08:44)
[2018-06-23] MEDS: ACCU-CHEK XX ×3 (10:00→20:05)
[2018-06-23] MEDS: FLUCONAZOLE 150 MG TAB PO (11:10)
[2018-06-23] MEDS: OXYCODONE/ACETAMINOPHEN (5/325) TAB PO (20:15)
[2018-06-23] MEDS: ATORVASTATIN 40 MG TAB PO (20:16)
[2018-06-23] MEDS: INSULIN GLARGINE [LANTus] (100 UNITS/ML) SYG SC (20:20)
[2018-06-24 05:33] LABS: ANION GAP 6 (5-13); BLOOD UREA NITROGEN 36 mg/dl (7-20); CALCIUM 9.4 mg/dl (8.4-10.2); CARBON DIOXIDE 25 mmol/L (21-31); CHLORIDE 110 mmol/L (97-110); CREATININE 1.03 mg/dl (0.44-1.00); Estimated GFR 55 mL/min (>60); GLUCOSE 110 mg/dl (70-220); POTASSIUM 3.2 mmol/L (3.5-5.1); SODIUM 141 mmol/L (135-144)
[2018-06-24] MEDS: LEVOTHYROXINE 112 MCG TAB PO (06:11)
[2018-06-24] MEDS: INSULIN ASPART [NOVOLOG] 3 ML PEN SC ×7 (08:00→20:47)
[2018-06-24] MEDS ORDERED: HEPARIN 5,000 UNIT/0.5 ML VIAL ×2 (08:34→19:54)
[2018-06-24] MEDS: COLLAGENASE 5 GM (UD JAR) TOP ×2 (09:00→15:35)
[2018-06-24] MEDS: LIDOCAINE 5% PATCH TD (09:00)
[2018-06-24] MEDS: MAGNESIUM SULFATE 4 GM/100 ML 100 ML IVPB (09:32)
[2018-06-24] MEDS: CEFEPIME 2GM/50 ML (PMX) 50 ML IVPB ×2 (09:36→20:46)
[2018-06-24] MEDS: VITAMIN B COMPLEX/VIT C CAP PO (09:40)
[2018-06-24] MEDS: SACCHAROMYCES BOULARDII 250 MG CAP PO ×2 (09:41→20:46)
[2018-06-24] MEDS: FISH OIL 1,000 MG CAP PO ×2 (09:41→20:46)
[2018-06-24] MEDS: NEBIVOLOL 5 MG TAB PO (09:41)
[2018-06-24] MEDS: POTASSIUM CHLORIDE (SR) 20 MEQ TAB PO (09:42)
[2018-06-24] MEDS: GABAPENTIN 100 MG CAP PO ×3 (09:42→20:47)
[2018-06-24] MEDS: CLOPIDOGREL 75 MG TAB PO (09:42)
[2018-06-24] MEDS: AMLODIPINE 5 MG TAB PO (09:42)
[2018-06-24] MEDS: FENOFIBRATE 145 MG TAB PO (09:42)
[2018-06-24] MEDS: FAMOTIDINE 20 MG TAB PO ×2 (09:42→20:46)
[2018-06-24] MEDS: LISINOPRIL 20 MG TAB PO ×2 (09:43→20:47)
[2018-06-24] MEDS: CYANOCOBALAMIN 500 MCG TAB PO (09:43)
[2018-06-24] MEDS: HEPARIN 5,000 UNIT/1 ML VIAL SC ×2 (09:44→20:48)
[2018-06-24] MEDS: VICTOZA SC (09:48)
[2018-06-24] MEDS: ATORVASTATIN 40 MG TAB PO (20:47)
[2018-06-24] MEDS: INSULIN GLARGINE [LANTus] (100 UNITS/ML) SYG SC (20:49)
[2018-06-25] MEDS: OXYCODONE/ACETAMINOPHEN (5/325) TAB PO ×2 (00:08→21:41)
[2018-06-25] MEDS: LEVOTHYROXINE 112 MCG TAB PO (06:23)
[2018-06-25] MEDS: INSULIN ASPART [NOVOLOG] 3 ML PEN SC ×7 (08:00→21:00)
[2018-06-25] MEDS ORDERED: HEPARIN 5,000 UNIT/0.5 ML VIAL ×2 (08:30→19:46)
[2018-06-25] MEDS: LIDOCAINE 5% PATCH TD (09:00)
[2018-06-25] MEDS: HEPARIN 5,000 UNIT/1 ML VIAL SC ×2 (09:05→20:21)
[2018-06-25] MEDS: VICTOZA SC (09:05)
[2018-06-25] MEDS: FISH OIL 1,000 MG CAP PO ×2 (09:07→20:19)
[2018-06-25] MEDS: CYANOCOBALAMIN 500 MCG TAB PO (09:08)
[2018-06-25] MEDS: FAMOTIDINE 20 MG TAB PO ×2 (09:08→20:20)
[2018-06-25] MEDS: NEBIVOLOL 5 MG TAB PO (09:08)
[2018-06-25] MEDS: FENOFIBRATE 145 MG TAB PO (09:09)
[2018-06-25] MEDS: POTASSIUM CHLORIDE (SR) 20 MEQ TAB PO (09:09)
[2018-06-25] MEDS: VITAMIN B COMPLEX/VIT C CAP PO (09:09)
[2018-06-25] MEDS: LISINOPRIL 20 MG TAB PO ×2 (09:10→20:23)
[2018-06-25] MEDS: GABAPENTIN 100 MG CAP PO ×3 (09:10→20:20)
[2018-06-25] MEDS: AMLODIPINE 5 MG TAB PO (09:10)
[2018-06-25] MEDS: CLOPIDOGREL 75 MG TAB PO (09:10)
[2018-06-25] MEDS: CEFEPIME 2GM/50 ML (PMX) 50 ML IVPB ×2 (09:11→21:24)
[2018-06-25] MEDS: SACCHAROMYCES BOULARDII 250 MG CAP PO ×2 (09:12→20:19)
[2018-06-25] MEDS: EPOETIN 10000 UNITS/ML (NON ESRD/NON ONCOLOGY) SC (17:36)
[2018-06-25] MEDS: INSULIN GLARGINE [LANTus] (100 UNITS/ML) SYG SC (20:12)
[2018-06-25] MEDS: ATORVASTATIN 40 MG TAB PO (20:19)
[2018-06-25] MEDS: COLLAGENASE 5 GM (UD JAR) TOP (22:00)
[2018-06-26 06:39] LABS: ADD MAN DIFF? NO
[2018-06-26] MEDS: LEVOTHYROXINE 112 MCG TAB PO (06:43)
[2018-06-26 06:54] LABS: WHITE BLOOD COUNT 5.3 10^3/ul (4.8-10.8)
[2018-06-26 06:54] LABS: BASOPHILS % 0.2 % (0.0-2.0); EOSINOPHILS # 0.3 10^3/ul (0.0-0.5); EOSINOPHILS % 5.3 % (0.0-7.0); HEMATOCRIT 31.6 % (37.0-47.0); HEMOGLOBIN 9.5 g/dl (12.0-16.0); LYMPHOCYTES # 2.6 10^3/ul (0.8-2.9); LYMPHOCYTES % 48.7 % (15.0-51.0); MEAN CORPUSCULAR HGB CONC 30.1 g/dl (32.0-37.0); MEAN CORPUSCULAR VOLUME 93.2 fl (82.0-101.0); MEAN PLATELET VOLUME 12.5 fl (7.4-10.4); MONOCYTE # 0.5 10^3/ul (0.3-0.9); MONOCYTES % 9.1 % (0.0-11.0); NEUTROPHIL # 1.9 10^3/ul (1.6-7.5); NEUTROPHILS % 36.5 % (39.0-77.0); RED BLOOD COUNT 3.39 10^6/ul (4.20-5.40); RED CELL DISTRIBUTION WIDTH 18.6 % (11.5-14.5)
[2018-06-26 06:57] LABS: PLATELET COUNT 133 10^3/UL (140-415); POSITIVE DIFF @See below
[2018-06-26 07:25] LABS: ANION GAP 7 (5-13); BLOOD UREA NITROGEN 37 mg/dl (7-20); CALCIUM 9.6 mg/dl (8.4-10.2); CARBON DIOXIDE 25 mmol/L (21-31); CHLORIDE 107 mmol/L (97-110); CREATININE 1.09 mg/dl (0.44-1.00); Estimated GFR 52 mL/min (>60); GLUCOSE 115 mg/dl (70-220); POTASSIUM 4.2 mmol/L (3.5-5.1); SODIUM 139 mmol/L (135-144)
[2018-06-26] MEDS: INSULIN ASPART [NOVOLOG] 3 ML PEN SC ×7 (08:00→21:00)
[2018-06-26] MEDS ORDERED: HEPARIN 5,000 UNIT/0.5 ML VIAL ×2 (08:03→20:04)
[2018-06-26] MEDS: FENOFIBRATE 145 MG TAB PO (08:15)
[2018-06-26] MEDS: SACCHAROMYCES BOULARDII 250 MG CAP PO ×2 (08:15→20:20)
[2018-06-26] MEDS: CEFEPIME 2GM/50 ML (PMX) 50 ML IVPB ×2 (08:15→21:08)
[2018-06-26] MEDS: CYANOCOBALAMIN 500 MCG TAB PO (08:15)
[2018-06-26] MEDS: NEBIVOLOL 5 MG TAB PO (08:16)
[2018-06-26] MEDS: GABAPENTIN 100 MG CAP PO ×3 (08:16→20:20)
[2018-06-26] MEDS: AMLODIPINE 5 MG TAB PO (08:16)
[2018-06-26] MEDS: CLOPIDOGREL 75 MG TAB PO (08:17)
[2018-06-26] MEDS: VITAMIN B COMPLEX/VIT C CAP PO (08:17)
[2018-06-26] MEDS: POTASSIUM CHLORIDE (SR) 20 MEQ TAB PO (08:17)
[2018-06-26] MEDS: FISH OIL 1,000 MG CAP PO ×2 (08:17→20:20)
[2018-06-26] MEDS: FAMOTIDINE 20 MG TAB PO ×2 (08:17→20:20)
[2018-06-26] MEDS: LISINOPRIL 20 MG TAB PO ×2 (08:17→20:23)
[2018-06-26] MEDS: LIDOCAINE 5% PATCH TD (08:19)
[2018-06-26] MEDS: HEPARIN 5,000 UNIT/1 ML VIAL SC ×2 (08:19→20:27)
[2018-06-26] MEDS: COLLAGENASE 5 GM (UD JAR) TOP (08:20)
[2018-06-26] MEDS: VICTOZA SC (10:04)
[2018-06-26] MEDS: INSULIN GLARGINE [LANTus] (100 UNITS/ML) SYG SC (20:16)
[2018-06-26] MEDS: ATORVASTATIN 40 MG TAB PO (20:19)
[2018-06-27] MEDS: LEVOTHYROXINE 112 MCG TAB PO (06:09)
[2018-06-27] MEDS: INSULIN ASPART [NOVOLOG] 3 ML PEN SC ×7 (08:12→20:31)
[2018-06-27] MEDS: VICTOZA SC (08:14)
[2018-06-27] MEDS ORDERED: HEPARIN 5,000 UNIT/0.5 ML VIAL ×2 (08:31→20:09)
[2018-06-27] MEDS: CYANOCOBALAMIN 500 MCG TAB PO (08:48)
[2018-06-27] MEDS: FISH OIL 1,000 MG CAP PO ×2 (08:48→20:29)
[2018-06-27] MEDS: GABAPENTIN 100 MG CAP PO ×3 (08:48→20:32)
[2018-06-27] MEDS: CLOPIDOGREL 75 MG TAB PO (08:48)
[2018-06-27] MEDS: FAMOTIDINE 20 MG TAB PO ×2 (08:49→20:32)
[2018-06-27] MEDS: AMLODIPINE 5 MG TAB PO (08:49)
[2018-06-27] MEDS: POTASSIUM CHLORIDE (SR) 20 MEQ TAB PO (08:49)
[2018-06-27] MEDS: FENOFIBRATE 145 MG TAB PO (08:49)
[2018-06-27] MEDS: LISINOPRIL 20 MG TAB PO ×2 (08:50→20:33)
[2018-06-27] MEDS: NEBIVOLOL 5 MG TAB PO (08:50)
[2018-06-27] MEDS: VITAMIN B COMPLEX/VIT C CAP PO (08:50)
[2018-06-27] MEDS: HEPARIN 5,000 UNIT/1 ML VIAL SC ×2 (08:56→20:32)
[2018-06-27] MEDS: CEFEPIME 2GM/50 ML (PMX) 50 ML IVPB ×2 (08:56→18:59)
[2018-06-27] MEDS: COLLAGENASE 5 GM (UD JAR) TOP (08:56)
[2018-06-27] MEDS: LIDOCAINE 5% PATCH TD (08:57)
[2018-06-27] MEDS: SACCHAROMYCES BOULARDII 250 MG CAP PO ×2 (09:59→20:32)
[2018-06-27] MEDS: EPOETIN 10000 UNITS/ML (NON ESRD/NON ONCOLOGY) SC (17:32)
[2018-06-27] MEDS: INSULIN GLARGINE [LANTus] (100 UNITS/ML) SYG SC (20:31)
[2018-06-27] MEDS: ATORVASTATIN 40 MG TAB PO (20:32)
== END 2018-06-27 20:52 | disposition home health service (06) | DRG 902 ==
LOC: E/R 00:04 → PP2 04:24
PROC: 0JBQ0ZZ Excision of Right Foot Subcutaneous Tissue and Fascia, Open Approach (ICD-10-PCS; 2018-06-16)
PROC: 0JBQ0ZZ Excision of Right Foot Subcutaneous Tissue and Fascia, Open Approach (ICD-10-PCS; 2018-06-19)
PROC: 0JBQ0ZZ Excision of Right Foot Subcutaneous Tissue and Fascia, Open Approach (ICD-10-PCS; 2018-06-22)
PROC: 0JBQ0ZZ Excision of Right Foot Subcutaneous Tissue and Fascia, Open Approach (ICD-10-PCS; principal; 2018-06-26)
DX: T81.31XA Disruption of external operation (surgical) wound, not elsewhere classified, initial encounter (principal); A04.72 Enterocolitis due to Clostridium difficile, not specified as recurrent; M86.171 Other acute osteomyelitis, right ankle and foot; N39.0 Urinary tract infection, site not specified; M24.671 Ankylosis, right ankle; I12.9 Hypertensive chronic kidney disease with stage 1 through stage 4 chronic kidney disease, or unspecified chronic kidney disease; E11.22 Type 2 diabetes mellitus with diabetic chronic kidney disease; E11.42 Type 2 diabetes mellitus with diabetic polyneuropathy; E11.610 Type 2 diabetes mellitus with diabetic neuropathic arthropathy; I25.10 Atherosclerotic heart disease of native coronary artery without angina pectoris; E78.5 Hyperlipidemia, unspecified; E03.9 Hypothyroidism, unspecified; E87.6 Hypokalemia; N18.3 Chronic kidney disease, stage 3 (moderate); D63.1 Anemia in chronic kidney disease; B96.1 Klebsiella pneumoniae [K. pneumoniae] as the cause of diseases classified elsewhere; B96.20 Unspecified Escherichia coli [E. coli] as the cause of diseases classified elsewhere; B96.5 Pseudomonas (aeruginosa) (mallei) (pseudomallei) as the cause of diseases classified elsewhere; Z79.4 Long term (current) use of insulin; Z86.73 Personal history of transient ischemic attack (TIA), and cerebral infarction without residual deficits
CPT/HCPCS: 36569; 71045; 73600; 73610; 73620; 73630-LT; 73700; 76937; 80048; 80053; 80069; 81001; 82728; 82962; 83036; 83540; 83605; 85025; 85610; 85651; 85730; 87040; 87070; 87075; 87081; 87086; 97110; 97162; 97166; 97530; 97535; 99285-25